=== PATIENT | female | born 1940 | race African-American/Black ===

== ENCOUNTER 2017-07-31 12:44 | Inpatient (IN) | payer MEDICARE ==
[~2017-07-31] VITALS: Ht 170.2 cm; Wt 77.1 kg
--- NOTE | 2017-07-31 12:50 | Emergency Room Report ---
History of Present Illness General Chief Complaint: Altered Level of Consciousness Source: EMS Present Illness HPI Patient is brought in from nursing facility with complaints of altered mental status Patient herself is not able to provide appropriate history There is a CT report from July 25 regarding an occipital CVA that is similar to previous Were contacting the assisted to obtain specifically the changes that were visualized Paramedics reported that the change in mentation was ongoing for approximately 30 minutes Unknown time of onset And the patient had become more oriented Allergies: Uncoded Allergies: PENICILLIN (Allergy, Unknown, 07/31/17) Patient History Limited by: medical condition Past Medical History: see triage record Pertinent Family History: none Reviewed Nursing Documentation: PMH: Agreed, PSxH: Agreed Nursing Documentation-PMH Past Medical History: No History, Except For Hx Cardiac Problems: Yes - [place], CHF, cardiomyopathy, Afib Hx Hypertension: Yes - Hyperlipidemia Hx Diabetes: Yes Hx Neurological Problems: Yes - Hemiplegia Review of Systems All Other Systems: limited - Other than the ones mentioned in the history of present illness all others are reviewed however they do stay limited due to the patient's mental status Physical Exam Vital Signs Date Time Temp Pulse Resp B/P (MAP) Pulse Ox O2 Delivery O2 Flow Rate FiO2 07/31/17 12:39 98.1 90 16 141/75 99 Room Air Sp02 EP Interpretation: reviewed, normal General Appearance: no apparent distress Head: normocephalic, atraumatic Eyes: bilateral eye PERRL ENT: other - Drooping of the right angle of the mouth Neck: supple Respiratory: lungs clear Cardiovascular #1: regular rate, rhythm Gastrointestinal: normal bowel sounds, non tender, soft Musculoskeletal: other - No obvious focal deficit, patient however does not follow commands Neurologic: responsive - To physical stimuli however not able to have appropriate conversation does not follow commands, Skin: normal color, no rash Lymphatic: no adenopathy Medical Decision Making Diagnostic Impression: Primary Impression: Altered level of consciousness Additional Impression: UTI (urinary tract infection) ER Course Patient is a fairly complex patient with multiple differential to consideration including but not limited to cardiac cardiopulmonary and vascular emergencies Patient's CT head does not show any acute pathology however further MRI is recommended Urine sample does show infectious pathology patient initiated on IV antibiotics And requires further inpatient care Labs Test 07/31/17 13:46 07/31/17 13:48 Urine Color Yellow Urine Appearance Turbid Urine pH 6 (4.5-8.0) Urine Specific [place] 1.010 (1.005-1.035) Urine Protein 2+ (NEGATIVE) Urine Glucose (UA) Negative (NEGATIVE) Urine Ketones Negative (NEGATIVE) Urine Occult Blood 4+ (NEGATIVE) Urine Nitrite Positive (NEGATIVE) Urine Bilirubin Negative (NEGATIVE) Urine Urobilinogen Normal MG/DL (0.0-1.0) Urine Leukocyte Esterase 3+ (NEGATIVE) White Blood Count 6.5 K/UL (4.8-10.8) Red Blood Count 4.00 M/UL (4.20-5.40) Hemoglobin 11.8 G/DL (12.0-16.0) Hematocrit 37.2 % (37.0-47.0) Mean Corpuscular Volume 93 FL (80-99) Mean Corpuscular Hemoglobin 29.4 PG (27.0-31.0) Mean Corpuscular Hemoglobin Concent 31.6 G/DL (32.0-36.0) Red Cell Distribution Width 12.3 % (11.6-14.8) Platelet Count 217 K/UL (150-450) Mean Platelet Volume 7.4 FL (6.5-10.1) Neutrophils (%) (Auto) % (45.0-75.0) Lymphocytes (%) (Auto) % (20.0-45.0) Monocytes (%) (Auto) % (1.0-10.0) Eosinophils (%) (Auto) % (0.0-3.0) Basophils (%) (Auto) % (0.0-2.0) Sodium Level 142 MMOL/L (136-145) Potassium Level 4.6 MMOL/L (3.5-5.1) Chloride Level 105 MMOL/L (98-107) Carbon Dioxide Level 31 MMOL/L (21-32) Anion Gap 6 mmol/L (5-15) Blood Urea Nitrogen 15 mg/dL (7-18) Creatinine 0.9 MG/DL (0.55-1.30) Estimat Glomerular Filtration Rate mL/min (>60) Glucose Level 176 MG/DL (74-106) Calcium Level 9.1 MG/DL (8.5-10.1) Total Bilirubin 0.4 MG/DL (0.2-1.0) Aspartate Amino Transf (AST/SGOT) 30 U/L (15-37) Alanine Aminotransferase (ALT/SGPT) 22 U/L (12-78) Alkaline Phosphatase 66 U/L (46-116) Total Creatine Kinase 52 U/L (26-308) Creatine Kinase MB < 0.5 NG/ML (0.0-3.6) Creatine Kinase MB Relative Index 0.9 Total Protein 6.5 G/DL (6.4-8.2) Albumin 2.6 G/DL (3.4-5.0) Globulin 3.9 g/dL Albumin/Globulin Ratio 0.7 (1.0-2.7) EKG Diagnostic Results Rate: normal Rhythm: NSR ST Segments: no acute changes - Sinus arrhythmia Rhythm Strip Diag. Results EP Interpretation: yes Rate: 77 Rhythm: NSR, no PVC's, no ectopy Chest X-Ray Diagnostic Results Chest X-Ray Diagnostic Results : Chest X-Ray Ordered: Yes # of Views/Limited/Complete: 1 View Indication: Chest Pain Interpretation: no consolidation, no effusion, no pneumothorax, no acute cardiopulmonary disease Impression: No acute disease Electronically Signed by: Cadence Olmedo, DO CT/MRI/US Diagnostic Results CT/MRI/US Diagnostic Results : Impression CT headImpression: Considerable low-attenuation within the left parietal hemisphere, mostly in the white matter. Suspect that this is encephalomalacia due to an infarct, particularly as it is mostly very low in attenuation. However, predominant involvement of the white matter raises concern that this could be days of genic edema secondary to tumor or inflammatory process. Recommend contrast MRI for better characterization Negative for acute intracranial bleed or mass effect Last Vital Signs Date Time Temp Pulse Resp B/P (MAP) Pulse Ox O2 Delivery O2 Flow Rate FiO2 07/31/17 12:39 98.1 90 16 141/75 99 Room Air Status: improved Disposition: XFER SHT-TRM HOSP Condition: Improved CADENCE OLMEDO D.O. Jul 31, 2017 12:50
[2017-07-31 13:04] VITALS: BP 141/75
[2017-07-31] MEDS ORDERED: COUMADIN5 MG ORAL (13:10)
[2017-07-31] MEDS ORDERED: DOCUSATE SODIU100 MG ORAL (13:10)
[2017-07-31] MEDS ORDERED: ENALAPRIL MALE2.5 MG ORAL (13:10)
[2017-07-31] MEDS ORDERED: SYMLIN600 MCG/1 SUBQ (13:10)
[2017-07-31] MEDS ORDERED: CARVEDILOL6.25 MG ORAL (13:10)
[2017-07-31] MEDS ORDERED: CATAPRES0.1 MG ORAL (13:10)
[2017-07-31] MEDS ORDERED: LACTULOSE20 GM/301 ORAL (13:10)
[2017-07-31] MEDS ORDERED: SENNA S TABLET1 EAC1 PO (13:10)
[2017-07-31] MEDS ORDERED: ASPIR 8181 MG ORAL (13:10)
[2017-07-31 14:20] LABS: HEMATOCRIT 37.2 % (37.0-47.0); HEMOGLOBIN 11.8 G/DL (12.0-16.0); MEAN CORPUSCULAR VOLUME 93 FL (80-99); PLATELET COUNT 217 K/UL (150-450); RED CELL DISTRIBUTION WIDTH 12.3 % (11.6-14.8); WHITE BLOOD COUNT 6.5 K/UL (4.8-10.8)
--- NOTE | 2017-07-31 14:29 | Diagnostic Imaging Report ---
Indications: Altered mental status Technique: Spiral acquisitions obtained through the brain. Angled axial and coronal 5 x 5 mm slices were reconstructed. Total dose length product 1421 mGycm. CTDI vol(s) 70 mGy. Dose reduction achieved using automated exposure control Comparison: None Findings: Fairly extensive low-attenuation is seen involving the left convexity, involving the parietal lobe. Although in one focal area, the low attenuation extends to the cortical surface, low-attenuation predominantly involves the white matter. Results in either mass effect nor ex vacuo dilatation. There is a lacunar infarct of indeterminate age within the left caudate head. Old lacunar infarcts are also seen in the left lentiform nucleus. No acute hemorrhage. No mass effect or midline shift is age-related enlargement of ventricles and extra-axial CSF. The calvarium is intact. The mastoids are clear. There is minimal ethmoid sinus disease on the right Impression: Considerable low-attenuation within the left parietal hemisphere, mostly in the white matter. Suspect that this is encephalomalacia due to an infarct, particularly as it is mostly very low in attenuation. However, predominant involvement of the white matter raises concern that this could be days of genic edema secondary to tumor or inflammatory process. Recommend contrast MRI for better characterization Negative for acute intracranial bleed or mass effect Findings discussed by phone with Dr. Montana in the emergency room at approximately [address] scanner at [facility] is accredited by the [employer] and the scans are performed using protocols designed to limit radiation exposure to as low as reasonably achievable to attain images of sufficient resolution adequate for diagnostic evaluation.
[2017-07-31 14:36] LABS: APPEARANCE,URINE TURBID; BILIRUBIN, URINE NEGATIVE (NEGATIVE); GLUCOSE, URINE (UA) NEGATIVE (NEGATIVE); KETONES,URINE NEGATIVE (NEGATIVE); LEUKOCYTE ESTERASE ,URINE 3+ (NEGATIVE); NITRITE,URINE POSITIVE (NEGATIVE); PH,URINE 6 (4.5-8.0); PROTEIN,URINE 2+ (NEGATIVE); UROBILINOGEN,URINE NORMAL MG/DL (0.0-1.0)
[2017-07-31 14:41] LABS: COLOR,URINE YELLOW
[2017-07-31 14:46] LABS: ALANINE AMINOTRANSFERASE 22 U/L (12-78); ALBUMIN 2.6 G/DL (3.4-5.0); ALBUMIN/GLOBULIN RATIO 0.7 (1.0-2.7); ALKALINE PHOSPHATASE 66 U/L (46-116); ANION GAP 6 mmol/L (5-15); ASPARTATE AMINO TRANSFERASE 30 U/L (15-37); BILIRUBIN,TOTAL 0.4 MG/DL (0.2-1.0); BLOOD UREA NITROGEN 15 mg/dL (7-18); CALCIUM 9.1 MG/DL (8.5-10.1); CARBON DIOXIDE 31 MMOL/L (21-32); CHLORIDE 105 MMOL/L (98-107); CKMB < 0.5 NG/ML (0.0-3.6); CREATINE KINASE 52 U/L (26-308); CREATININE 0.9 MG/DL (0.55-1.30); POTASSIUM 4.6 MMOL/L (3.5-5.1); SODIUM 142 MMOL/L (136-145)
[2017-07-31] MEDS ORDERED: Clindamycin 600mg 50 ML IVPB ONE (15:00)
[2017-07-31 15:18] LABS: INR 1.2 (0.9-1.1)
--- NOTE | 2017-07-31 15:22 | Diagnostic Imaging Report ---
Indication: SOB Technique: One view of the chest Comparison: none Findings: Suboptimal inspiration. Heart size is upper limits of normal. Surgical clips are seen in the right axilla. Aorta is tortuous. Upper mediastinum is unremarkable Impression: No acute process
[2017-07-31] MEDS ORDERED: cefTRIAXone 1 GM in NS 55 ML IVPB ONE (16:45)
--- NOTE | 2017-07-31 17:04 | History & Physical ---
History and Physical History & Physicial dict syncope UTI recent CVA HTN DM HPLD see orders LM HSIEH Jul 31, 2017 17:04
--- NOTE | 2017-07-31 17:04 | History & Physical ---
History and Physical History & Physicial dict syncope UTI recent CVA HTN DM HPLD see orders LM HSIEH Jul 31, 2017 17:04
--- NOTE | 2017-07-31 17:04 | History & Physical ---
History and Physical History & Physicial dict syncope UTI recent CVA HTN DM HPLD see orders LM HSIEH Jul 31, 2017 17:04
[2017-07-31 17:36] VITALS: BP 129/85
[2017-07-31 18:04] VITALS: BP 140/72
[2017-07-31 20:08] VITALS: BP 132/65
--- NOTE | 2017-07-31 21:45 | History and Physical Report ---
DATE OF ADMISSION: 07/31/2017 CHIEF COMPLAINT: Loss of consciousness. HISTORY OF PRESENT ILLNESS: The patient is a 77-year-old female, who apparently was living at home until about two weeks ago when she suffered a stroke with right-sided weakness and difficulty speaking. She was hospitalized at [facility] with atrial fibrillation. She improved and was discharged to a nearby skilled nursing. She was getting therapy today when she passed out. She was evaluated in the emergency department here after she was transported by paramedics. She was found to have a urinary tract infection and controlled atrial fibrillation, admission was arranged. PAST MEDICAL HISTORY: History is limited. Based on her medications, there appears to be history of atrial fibrillation, hypertension, diabetes, and recent stroke. There is also noted a history of myocardial infarction and cardiomyopathy in the past as well as hyperlipidemia. ALLERGIES: Penicillin. REVIEW OF SYSTEMS: Apparently, she is not able to ambulate. She is eating pureed diet. She has no complaints of pain. She is able to speak simple words and seems to understand. PHYSICAL EXAMINATION: VITAL SIGNS: Stable, blood pressure 141/75, saturations are normal, and pulse is 90. HEENT: The head is normocephalic. NECK: No jugular venous distention. CHEST: Clear. CARDIAC: Rhythm is irregular without murmur or gallop. ABDOMEN: Soft and nontender. Liver and spleen not enlarged. EXTREMITIES: No clubbing, cyanosis, or edema. NEUROLOGIC: Right hemiparesis is noted. The speech is dysarthric with mild aphasia. LABORATORY AND DIAGNOSTIC DATA: Laboratory studies show the white count is normal, hemoglobin is 11.8, and platelets are normal. There is a left shift. Chemistry shows blood sugar 176 and albumin 2.6, otherwise unremarkable. Lactic acid is normal. Urinalysis shows many white cells and a few red cells. Coagulation parameters are unremarkable. IMPRESSIONS: 1. Syncope. 2. Urinary tract infection. 3. Recent stroke with right hemiparesis, aphasia, and dysarthria. 4. Diabetes. 5. Hypertension. 6. Hyperlipidemia. PLAN: The patient will be treated with antibiotics. We will get an echocardiogram and cardiac monitoring. We will check troponin. Early discharge is anticipated. Gurvinder Benson M.D. DR: Sagar JOB#: [id number] CC: Gurvinder Benson M.D.; Fax#: [phone]
--- NOTE | 2017-07-31 21:45 | History and Physical Report ---
DATE OF ADMISSION: 07/31/2017 CHIEF COMPLAINT: Loss of consciousness. HISTORY OF PRESENT ILLNESS: The patient is a 77-year-old female, who apparently was living at home until about two weeks ago when she suffered a stroke with right-sided weakness and difficulty speaking. She was hospitalized at [facility] [place] with atrial fibrillation. She improved and was discharged to a nearby detention. She was getting therapy today when she passed out. She was evaluated in the emergency department here after she was transported by paramedics. She was found to have a urinary tract infection and controlled atrial fibrillation, admission was arranged. PAST MEDICAL HISTORY: History is limited. Based on her medications, there appears to be history of atrial fibrillation, hypertension, diabetes, and recent stroke. There is also noted a history of myocardial infarction and cardiomyopathy in the past as well as hyperlipidemia. ALLERGIES: Penicillin. REVIEW OF SYSTEMS: Apparently, she is not able to ambulate. She is eating pureed diet. She has no complaints of pain. She is able to speak simple words and seems to understand. PHYSICAL EXAMINATION: VITAL SIGNS: Stable, blood pressure 141/75, saturations are normal, and pulse is 90. HEENT: The head is normocephalic. NECK: No jugular venous distention. CHEST: Clear. CARDIAC: Rhythm is irregular without murmur or gallop. ABDOMEN: Soft and nontender. Liver and spleen not enlarged. EXTREMITIES: No clubbing, cyanosis, or edema. NEUROLOGIC: Right hemiparesis is noted. The speech is dysarthric with mild aphasia. LABORATORY AND DIAGNOSTIC DATA: Laboratory studies show the white count is normal, hemoglobin is 11.8, and platelets are normal. There is a left shift. Chemistry shows blood sugar 176 and albumin 2.6, otherwise unremarkable. Lactic acid is normal. Urinalysis shows many white cells and a few red cells. Coagulation parameters are unremarkable. IMPRESSIONS: 1. Syncope. 2. Urinary tract infection. 3. Recent stroke with right hemiparesis, aphasia, and dysarthria. 4. Diabetes. 5. Hypertension. 6. Hyperlipidemia. PLAN: The patient will be treated with antibiotics. We will get an echocardiogram and cardiac monitoring. We will check troponin. Early discharge is anticipated. Gurvinder Benson M.D. DR: Sagar JOB#: [id number] CC: Gurvinder Benson M.D.; Fax#: [phone]
[2017-07-31] MEDS: Enalapril 2.5mg tab ORAL SCH (22:38)
[2017-07-31] MEDS: Carvedilol 6.25mg Tab ORAL SCH (22:39)
[2017-07-31] MEDS: Warfarin Sodium 5mg ORAL SCH (22:40)
[2017-07-31] MEDS: NovoLOG Insulin Flexpen SUBQ SCH (22:53)
[2017-07-31] MEDS ORDERED: ACETAMINOPHEN325 M1 ORAL (23:58)
[2017-08-01] VITALS (7 sets, daily range): BP systolic 109–164; BP diastolic 56–99
[2017-08-01] MEDS ORDERED: Lactulose 20gm/30ml UDC ORAL SCH
[2017-08-01] MEDS ORDERED: Lactulose 20gm/30ml UDC ORAL PRN ×2 (00:15)
[2017-08-01] MEDS: NovoLOG Insulin Flexpen SUBQ SCH ×4 (06:34→21:24)
[2017-08-01 08:02] LABS: BASOPHILS % (AUTO) 0.4 % (0.0-2.0); EOSINOPHILS % (AUTO) 1.7 % (0.0-3.0); HEMATOCRIT 33.1 % (37.0-47.0); HEMOGLOBIN 10.8 G/DL (12.0-16.0); LYMPHOCYTES % (AUTO) 21.2 % (20.0-45.0); MEAN CORPUSCULAR VOLUME 93 FL (80-99); MONOCYTES % (AUTO) 8.9 % (1.0-10.0); NEUTROPHILS % (AUTO) 67.7 % (45.0-75.0); PLATELET COUNT 180 K/UL (150-450); RED BLOOD COUNT 3.57 M/UL (4.20-5.40); RED CELL DISTRIBUTION WIDTH 12.8 % (11.6-14.8); WHITE BLOOD COUNT 6.6 K/UL (4.8-10.8)
[2017-08-01 08:09] LABS: INR 1.2 (0.9-1.1)
[2017-08-01 08:44] LABS: ALANINE AMINOTRANSFERASE 20 U/L (12-78); ALBUMIN 2.5 G/DL (3.4-5.0); ALBUMIN/GLOBULIN RATIO 0.7 (1.0-2.7); ALKALINE PHOSPHATASE 54 U/L (46-116); ANION GAP 11 mmol/L (5-15); ASPARTATE AMINO TRANSFERASE 34 U/L (15-37); BILIRUBIN,TOTAL 0.5 MG/DL (0.2-1.0); BLOOD UREA NITROGEN 13 mg/dL (7-18); CALCIUM 8.8 MG/DL (8.5-10.1); CARBON DIOXIDE 26 MMOL/L (21-32); CHLORIDE 104 MMOL/L (98-107); CHOLESTEROL 177 MG/DL (< 200); CREATININE 0.8 MG/DL (0.55-1.30); HDL CHOLESTEROL 44 MG/DL (40-60); POTASSIUM 4.9 MMOL/L (3.5-5.1); SODIUM 141 MMOL/L (136-145); TRIGLYCERIDES 61 MG/DL (0-200)
--- NOTE | 2017-08-01 09:13 | Wound Care Consultation ---
Wound Assessment Wound Assessment #1: Wound Number: 1 Wound Present on Admission: Yes New Wound: No Status Change of Wound: No Wound Location Body Site Modif: mid Wound Location Body Site: sacral Wound Type: pressure ulcer Denisha Test: Does not Denisha Pressure Ulcer Stage: III Wound Thickness: Full Thickness Wound Length: 2.5 Wound Width: 2.5 Wound Depth: 0.3 Percent of Wound [place]/Red: 100 Wound Drainage Description: Serosanguineous Wound Drainage Amount: Scant Wound Drainage Odor: None/Absent Tissue Surrounding Wound: Macerated Wound General Appearance: Reddened, Draining Wound Assessment #2: Wound Number: 2 Wound Present on Admission: Yes New Wound: No Status Change of Wound: No Wound Location Body Site Modif: right Wound Location Body Site: buttocks Wound Type: pressure ulcer Denisha Test: Does not Denisha Pressure Ulcer Stage: II Wound Thickness: Partial Thickness Wound Length: 0.5 Wound Width: 0.5 Wound Depth: 0.1 Percent of Wound [place]/Red: 100 Wound Drainage Description: Serosanguineous Wound Drainage Amount: Scant Wound Drainage Odor: None/Absent Tissue Surrounding Wound: Macerated Wound General Appearance: Reddened, Draining Wound Comment #1 Mid sacral stage III pressure ulcer #2 Right buttock stage II pressure ulcer Recommendation -Mid sacral stage III pressure ulcer and Right buttock stage II pressure ulcer Cleanse with saline, pat dry, apply Triad cream, to wound bed and to [place] wound area, cover with Biatain silicone daily and PRN soiled/dislodged -Low air loss P 200 mattress -Offload both heels -Heel protector on both heels -Optimize nutrition -Keep clean and dry -Turn and reposition -Assess and f/u accordingly for any changes ARBEN ASHTON RN Aug 01, 2017 09:13
--- NOTE | 2017-08-01 09:13 | Wound Care Consultation ---
Wound Assessment Wound Assessment #1: Wound Number: 1 Wound Present on Admission: Yes New Wound: No Status Change of Wound: No Wound Location Body Site Modif: mid Wound Location Body Site: sacral Wound Type: pressure ulcer Denisha Test: Does not Denisha Pressure Ulcer Stage: III Wound Thickness: Full Thickness Wound Length: 2.5 Wound Width: 2.5 Wound Depth: 0.3 Percent of Wound [place]/Red: 100 Wound Drainage Description: Serosanguineous Wound Drainage Amount: Scant Wound Drainage Odor: None/Absent Tissue Surrounding Wound: Macerated Wound General Appearance: Reddened, Draining Wound Assessment #2: Wound Number: 2 Wound Present on Admission: Yes New Wound: No Status Change of Wound: No Wound Location Body Site Modif: right Wound Location Body Site: buttocks Wound Type: pressure ulcer Denisha Test: Does not Denisha Pressure Ulcer Stage: II Wound Thickness: Partial Thickness Wound Length: 0.5 Wound Width: 0.5 Wound Depth: 0.1 Percent of Wound [place]/Red: 100 Wound Drainage Description: Serosanguineous Wound Drainage Amount: Scant Wound Drainage Odor: None/Absent Tissue Surrounding Wound: Macerated Wound General Appearance: Reddened, Draining Wound Comment #1 Mid sacral stage III pressure ulcer #2 Right buttock stage II pressure ulcer Recommendation -Mid sacral stage III pressure ulcer and Right buttock stage II pressure ulcer Cleanse with saline, pat dry, apply Triad cream, to wound bed and to [place] wound area, cover with Biatain silicone daily and PRN soiled/dislodged -Low air loss P 200 mattress -Offload both heels -Heel protector on both heels -Optimize nutrition -Keep clean and dry -Turn and reposition -Assess and f/u accordingly for any changes ARBEN ASHTON RN Aug 01, 2017 09:13
--- NOTE | 2017-08-01 09:13 | Wound Care Consultation ---
Wound Assessment Wound Assessment #1: Wound Number: 1 Wound Present on Admission: Yes New Wound: No Status Change of Wound: No Wound Location Body Site Modif: mid Wound Location Body Site: sacral Wound Type: pressure ulcer Denisha Test: Does not Denisha Pressure Ulcer Stage: III Wound Thickness: Full Thickness Wound Length: 2.5 Wound Width: 2.5 Wound Depth: 0.3 Percent of Wound [place]/Red: 100 Wound Drainage Description: Serosanguineous Wound Drainage Amount: Scant Wound Drainage Odor: None/Absent Tissue Surrounding Wound: Macerated Wound General Appearance: Reddened, Draining Wound Assessment #2: Wound Number: 2 Wound Present on Admission: Yes New Wound: No Status Change of Wound: No Wound Location Body Site Modif: right Wound Location Body Site: buttocks Wound Type: pressure ulcer Denisha Test: Does not Denisha Pressure Ulcer Stage: II Wound Thickness: Partial Thickness Wound Length: 0.5 Wound Width: 0.5 Wound Depth: 0.1 Percent of Wound [place]/Red: 100 Wound Drainage Description: Serosanguineous Wound Drainage Amount: Scant Wound Drainage Odor: None/Absent Tissue Surrounding Wound: Macerated Wound General Appearance: Reddened, Draining Wound Comment #1 Mid sacral stage III pressure ulcer #2 Right buttock stage II pressure ulcer Recommendation -Mid sacral stage III pressure ulcer and Right buttock stage II pressure ulcer Cleanse with saline, pat dry, apply Triad cream, to wound bed and to [place] wound area, cover with Biatain silicone daily and PRN soiled/dislodged -Low air loss P 200 mattress -Offload both heels -Heel protector on both heels -Optimize nutrition -Keep clean and dry -Turn and reposition -Assess and f/u accordingly for any changes ARBEN ASHTON RN Aug 01, 2017 09:13
[2017-08-01] MEDS: Aspirin EC 81mg tab ORAL SCH (10:06)
[2017-08-01] MEDS: Enalapril 2.5mg tab ORAL SCH ×2 (10:06→21:18)
[2017-08-01] MEDS: Carvedilol 6.25mg Tab ORAL SCH ×2 (10:06→21:18)
[2017-08-01] MEDS: Docusate 100mg cap ORAL SCH ×2 (10:06→18:46)
--- NOTE | 2017-08-01 14:13 | General Progress Note ---
Assessment/Plan Status: stable Assessment/Plan 1. Syncope. 2. Urinary tract infection. 3. Recent stroke with right hemiparesis, aphasia, and dysarthria. 4. Diabetes. 5. Hypertension. 6. Hyperlipidemia. 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 Subjective ROS Limited/Unobtainable: Yes Constitutional: Denies: fever Allergies: Coded Allergies: PENICILLINS (Unverified Allergy, Unknown, 08/01/17) Uncoded Allergies: PENICILLIN (Allergy, Unknown, 07/31/17) Objective Last 24 Hour Vital Signs Date Time Temp Pulse Resp B/P (MAP) Pulse Ox O2 Delivery O2 Flow Rate FiO2 08/01/17 12:45 96.6 69 19 109/56 98 Room Air 08/01/17 10:06 152/76 08/01/17 10:06 98 152/76 08/01/17 08:50 97.7 98 18 152/76 98 Room Air 08/01/17 04:25 97.3 102 16 130/71 98 Room Air 08/01/17 04:00 75 08/01/17 00:13 97.7 77 16 142/69 100 Room Air 08/01/17 00:00 75 07/31/17 22:39 57 132/65 07/31/17 22:38 132/65 07/31/17 22:00 132/65 07/31/17 20:08 97.2 57 12 132/65 97 07/31/17 20:00 62 07/31/17 18:04 96.4 59 18 140/72 96 Room Air 07/31/17 17:44 98.1 81 19 129/85 100 Room Air 07/31/17 17:36 98.1 81 19 129/85 100 Room Air Intake and Output 08/01/17 08/02/17 19:00 07:00 Intake Total 270 ml Output Total 250 ml Balance 20 ml Intake Oral 270 ml Output Urine Total 250 ml # Bowel Movements 1 Laboratory Tests 08/01/17 05:15: White Blood Count 6.6, Red Blood Count 3.57L, Hemoglobin 10.8L, Hematocrit 33.1L , Mean Corpuscular Volume 93, Mean Corpuscular Hemoglobin 30.2, Mean Corpuscular Hemoglobin Concent 32.5, Red Cell Distribution Width 12.8, Platelet Count 180, Mean Platelet Volume 7.1, Neutrophils (%) (Auto) 67.7, Lymphocytes (% ) (Auto) 21.2, Monocytes (%) (Auto) 8.9, Eosinophils (%) (Auto) 1.7, Basophils ( %) (Auto) 0.4, Prothrombin Time 12.9H, Prothromb Time International Ratio 1.2H, Sodium Level 141, Potassium Level 4.9, Chloride Level 104, Carbon Dioxide Level 26, Anion Gap 11, Blood Urea Nitrogen 13, Creatinine 0.8, Estimat Glomerular Filtration Rate , Glucose Level 113H, Hemoglobin A1c 5.6, Calcium Level 8.8, Total Bilirubin 0.5, Aspartate Amino Transf (AST/SGOT) 34, Alanine Aminotransferase (ALT/SGPT) 20, Alkaline Phosphatase 54, Total Protein 6.2L, Albumin 2.5L, Globulin 3.7, Albumin/Globulin Ratio 0.7L, Triglycerides Level 61 , Cholesterol Level 177, LDL Cholesterol 113H, HDL Cholesterol 44, Cholesterol/ HDL Ratio 4.0, Thyroid Stimulating Hormone (TSH) 0.756 Height (Feet): 5 Height (Inches): 7.00 Weight (Pounds): 170 General Appearance: no apparent distress, confused Neck: normal alignment Cardiovascular: normal rate Respiratory/Chest: lungs clear Abdomen: non tender LM HSIEH Aug 01, 2017 14:13
--- NOTE | 2017-08-01 14:56 | Infectious Diseases Prog Note ---
Assessment/Plan Assessment/Plan Full consult dictated: A) 1) uti 2) possible gram + bacteremia 3) possible sepsis, ams 4) pmh noted P) 1) vancomycin, cefepime 2) check bc, uc, labs 3) d/w Dr. Benson 4) thank you Subjective Allergies: Coded Allergies: PENICILLINS (Unverified Allergy, Unknown, 08/01/17) Uncoded Allergies: PENICILLIN (Allergy, Unknown, 07/31/17) Objective Vital Signs Last 24 Hour Vital Signs Date Time Temp Pulse Resp B/P (MAP) Pulse Ox O2 Delivery O2 Flow Rate FiO2 08/01/17 12:45 97.9 55 19 147/78 100 Room Air 08/01/17 10:06 152/76 08/01/17 10:06 98 152/76 08/01/17 08:50 97.7 98 18 152/76 98 Room Air 08/01/17 04:25 97.3 102 16 130/71 98 Room Air 08/01/17 04:00 75 08/01/17 00:13 97.7 77 16 142/69 100 Room Air 08/01/17 00:00 75 07/31/17 22:39 57 132/65 07/31/17 22:38 132/65 07/31/17 22:00 132/65 07/31/17 20:08 97.2 57 12 132/65 97 07/31/17 20:00 62 07/31/17 18:04 96.4 59 18 140/72 96 Room Air 07/31/17 17:44 98.1 81 19 129/85 100 Room Air 07/31/17 17:36 98.1 81 19 129/85 100 Room Air Height (Feet): 5 Height (Inches): 7.00 Weight (Pounds): 170 Microbiology Date/Time Source Procedure Growth Status 07/31/17 13:25 Blood Blood Culture - Preliminary Resulted 07/31/17 13:46 Urine,Clean Catch Urine Culture - Preliminary Gram Negative Bacillus 1 Resulted Laboratory Tests Test 08/01/17 05:15 White Blood Count 6.6 K/UL (4.8-10.8) Red Blood Count 3.57 M/UL (4.20-5.40) L Hemoglobin 10.8 G/DL (12.0-16.0) L Hematocrit 33.1 % (37.0-47.0) L Mean Corpuscular Volume 93 FL (80-99) Mean Corpuscular Hemoglobin 30.2 PG (27.0-31.0) Mean Corpuscular Hemoglobin Concent 32.5 G/DL (32.0-36.0) Red Cell Distribution Width 12.8 % (11.6-14.8) Platelet Count 180 K/UL (150-450) Mean Platelet Volume 7.1 FL (6.5-10.1) Neutrophils (%) (Auto) 67.7 % (45.0-75.0) Lymphocytes (%) (Auto) 21.2 % (20.0-45.0) Monocytes (%) (Auto) 8.9 % (1.0-10.0) Eosinophils (%) (Auto) 1.7 % (0.0-3.0) Basophils (%) (Auto) 0.4 % (0.0-2.0) Prothrombin Time 12.9 SEC (9.30-11.50) H Prothromb Time International Ratio 1.2 (0.9-1.1) H Sodium Level 141 MMOL/L (136-145) Potassium Level 4.9 MMOL/L (3.5-5.1) Chloride Level 104 MMOL/L (98-107) Carbon Dioxide Level 26 MMOL/L (21-32) Anion Gap 11 mmol/L (5-15) Blood Urea Nitrogen 13 mg/dL (7-18) Creatinine 0.8 MG/DL (0.55-1.30) Estimat Glomerular Filtration Rate mL/min (>60) Glucose Level 113 MG/DL (74-106) H Hemoglobin A1c 5.6 % (4.3-6.0) Calcium Level 8.8 MG/DL (8.5-10.1) Total Bilirubin 0.5 MG/DL (0.2-1.0) Aspartate Amino Transf (AST/SGOT) 34 U/L (15-37) Alanine Aminotransferase (ALT/SGPT) 20 U/L (12-78) Alkaline Phosphatase 54 U/L (46-116) Total Protein 6.2 G/DL (6.4-8.2) L Albumin 2.5 G/DL (3.4-5.0) L Globulin 3.7 g/dL Albumin/Globulin Ratio 0.7 (1.0-2.7) L Triglycerides Level 61 MG/DL (0-200) Cholesterol Level 177 MG/DL (< 200) LDL Cholesterol 113 mg/dL (<100) H HDL Cholesterol 44 MG/DL (40-60) Cholesterol/HDL Ratio 4.0 (3.3-4.4) Thyroid Stimulating Hormone (TSH) 0.756 uiU/mL (0.360-3.740) Current Medications Medications (Trade) Dose Ordered Sig/Ricardo Route PRN Reason Start Time Stop Time Status Last Admin Dose Admin Acetaminophen (Tylenol) 650 mg Q4H PRN ORAL Fever/Headache/Mild Pain 07/31/17 19:30 08/30/17 19:29 Aspirin (Ecotrin) 81 mg DAILY ORAL 08/01/17 09:00 08/31/17 08:59 08/01/17 10:06 Carvedilol (Coreg) 6.25 mg EVERY 12 HOURS ORAL 07/31/17 21:00 08/30/17 20:59 08/01/17 10:06 Clonidine HCl (Catapres) 0.1 mg Q8HR PRN ORAL For High Blood Pressure 08/01/17 00:00 08/31/17 00:00 Dextrose (Dextrose 50%) STAT PRN IV Hypoglycemia 07/31/17 19:30 08/30/17 19:29 Docusate Sodium (Colace) 100 mg TWICE A DAY ORAL 08/01/17 09:00 08/31/17 08:59 08/01/17 10:06 Enalapril Maleate (Vasotec) 2.5 mg EVERY 12 HOURS ORAL 07/31/17 21:00 08/30/17 20:59 08/01/17 10:06 Insulin Aspart (NovoLOG) BEFORE MEALS AND HS SUBQ 07/31/17 21:00 08/30/17 20:59 08/01/17 12:25 Lactulose (Cephulac) 20 gm Q6HR PRN ORAL Constipation 08/01/17 00:15 08/31/17 00:14 Warfarin Sodium (Coumadin per pharmacy) 1 ea DAILY PRN MISC Per rx protocol 07/31/17 19:30 08/30/17 19:29 Warfarin Sodium (Coumadin) 5 mg COUMADIN ORAL 07/31/17 21:00 08/05/17 20:59 07/31/17 22:40 MIKKI COLON Aug 01, 2017 14:56
[2017-08-01] MEDS ORDERED: Vancomycin 1250mg/D5W 250ml 250 ML IVPB SCH (17:30)
[2017-08-01] MEDS: Warfarin Sodium 5mg ORAL SCH (17:33)
[2017-08-02] VITALS: BP 149/74
[2017-08-02 04:00] VITALS: BP 148/64
[2017-08-02] MEDS: NovoLOG Insulin Flexpen SUBQ SCH ×4 (07:02→21:29)
[2017-08-02 08:00] VITALS: BP 159/78
[2017-08-02 09:00] LABS: BASOPHILS % (AUTO) 3.1 % (0.0-2.0); EOSINOPHILS % (AUTO) 1.2 % (0.0-3.0); HEMATOCRIT 34.3 % (37.0-47.0); HEMOGLOBIN 11.4 G/DL (12.0-16.0); MEAN CORPUSCULAR VOLUME 93 FL (80-99); MONOCYTES % (AUTO) 12.6 % (1.0-10.0); PLATELET COUNT 193 K/UL (150-450); RED BLOOD COUNT 3.68 M/UL (4.20-5.40); RED CELL DISTRIBUTION WIDTH 12.6 % (11.6-14.8); WHITE BLOOD COUNT 5.8 K/UL (4.8-10.8)
[2017-08-02 09:20] LABS: INR 1.4 (0.9-1.1)
[2017-08-02] MEDS: Aspirin EC 81mg tab ORAL SCH (09:38)
[2017-08-02] MEDS: Enalapril 2.5mg tab ORAL SCH ×2 (09:38→21:31)
[2017-08-02] MEDS: Carvedilol 6.25mg Tab ORAL SCH ×2 (09:38→21:31)
[2017-08-02] MEDS: Docusate 100mg cap ORAL SCH ×2 (09:39→17:03)
[2017-08-02 09:49] LABS: ALANINE AMINOTRANSFERASE 18 U/L (12-78); ALBUMIN 2.6 G/DL (3.4-5.0); ALBUMIN/GLOBULIN RATIO 0.6 (1.0-2.7); ALKALINE PHOSPHATASE 54 U/L (46-116); ANION GAP 9 mmol/L (5-15); ASPARTATE AMINO TRANSFERASE 26 U/L (15-37); BILIRUBIN,TOTAL 0.6 MG/DL (0.2-1.0); BLOOD UREA NITROGEN 13 mg/dL (7-18); CALCIUM 9.1 MG/DL (8.5-10.1); CARBON DIOXIDE 27 MMOL/L (21-32); CHLORIDE 104 MMOL/L (98-107); CHOLESTEROL 181 MG/DL (< 200); CREATININE 0.9 MG/DL (0.55-1.30); HDL CHOLESTEROL 46 MG/DL (40-60); POTASSIUM 4.4 MMOL/L (3.5-5.1); SODIUM 140 MMOL/L (136-145); TRIGLYCERIDES 53 MG/DL (0-200)
[2017-08-02] MEDS: Vancomycin 750mg/NS 250ml 250 ML IVPB SCH ×2 (10:00→21:31)
[2017-08-02 12:00] VITALS: BP 148/58
--- NOTE | 2017-08-02 13:42 | Pulmonology Progress Note ---
Assessment/Plan Assessment/Plan 1. Syncope. 2. Urinary tract infection staph epi bacteremia 3. Recent stroke with right hemiparesis, aphasia, and dysarthria. 4. Diabetes. 5. Hypertension. 6. Hyperlipidemia. PLAN: abx o2 nebs and suction modified diet fu labs wound care pt cxr friday Subjective ROS Limited/Unobtainable: Yes Allergies: Coded Allergies: PENICILLINS (Unverified Allergy, Unknown, 08/01/17) Uncoded Allergies: PENICILLIN (Allergy, Unknown, 07/31/17) Subjective difficult to understand no distress on o2 tolerating po with assitance, modifed no cp or fever noted does not get out of bed Objective Last 24 Hour Vital Signs Date Time Temp Pulse Resp B/P (MAP) Pulse Ox O2 Delivery O2 Flow Rate FiO2 08/02/17 12:00 98.2 58 18 148/58 100 Room Air 08/02/17 09:38 159/78 08/02/17 09:38 57 159/78 08/02/17 08:00 97.9 57 18 159/78 98 Room Air 08/02/17 04:00 97.7 61 20 148/64 100 Room Air 08/02/17 04:00 61 08/02/17 00:00 66 08/02/17 00:00 97.7 96 18 149/74 98 Room Air 08/01/17 21:18 164/99 08/01/17 21:18 62 164/99 08/01/17 20:31 97.5 18 164/99 94 Room Air 97.0 08/01/17 20:03 98.1 62 18 153/62 94 Room Air 96.0 08/01/17 20:00 63 08/01/17 16:00 85 08/01/17 15:53 97.9 60 18 151/69 100 Room Air Intake and Output 08/02/17 08/03/17 19:00 07:00 Intake Total 360 ml Balance 360 ml Intake Oral 360 ml General Appearance: WD/WN HEENT: atraumatic, anicteric Respiratory/Chest: rhonchi Cardiovascular: normal rate, regularly irregular Abdomen: no organomegaly Extremities: no clubbing Skin: no lesions Microbiology Date/Time Source Procedure Growth Status 07/31/17 13:48 Blood Blood Culture - Preliminary Gram Positive Cocci Resulted 07/31/17 13:25 Blood Blood Culture - Preliminary Staphylococcus Species Resulted 07/31/17 18:00 Nasal Nares MRSA Culture - Final NO METHICILLIN RESISTANT STAPH AUREUS... Complete 07/31/17 13:46 Urine,Clean Catch Urine Culture - Final Klebsiella Pneumoniae Complete 07/31/17 18:00 Rectum VRE Culture - Final NO VANCOMYCIN RESISTANT ENTEROCOCCUS ... Complete Laboratory Tests 08/02/17 07:35: White Blood Count 5.8, Red Blood Count 3.68L, Hemoglobin 11.4L, Hematocrit 34.3L , Mean Corpuscular Volume 93, Mean Corpuscular Hemoglobin 30.9, Mean Corpuscular Hemoglobin Concent 33.3, Red Cell Distribution Width 12.6, Platelet Count 193, Mean Platelet Volume 8.0, Neutrophils (%) (Auto) 67.0, Lymphocytes (% ) (Auto) 16.0L, Monocytes (%) (Auto) 12.6H, Eosinophils (%) (Auto) 1.2, Basophils (%) (Auto) 3.1H, Prothrombin Time 14.7H, Prothromb Time International Ratio 1.4H, Sodium Level 140, Potassium Level 4.4, Chloride Level 104, Carbon Dioxide Level 27, Anion Gap 9, Blood Urea Nitrogen 13, Creatinine 0.9, Estimat Glomerular Filtration Rate , Glucose Level 120H, Calcium Level 9.1, Total Bilirubin 0.6, Aspartate Amino Transf (AST/SGOT) 26, Alanine Aminotransferase ( ALT/SGPT) 18, Alkaline Phosphatase 54, Total Protein 6.7, Albumin 2.6L, Globulin 4.1, Albumin/Globulin Ratio 0.6L, Triglycerides Level 53, Cholesterol Level 181, LDL Cholesterol 124H, HDL Cholesterol 46, Cholesterol/HDL Ratio 3.9, Thyroid Stimulating Hormone (TSH) 0.730 Current Medications Medications (Trade) Dose Ordered Sig/Ricardo Route PRN Reason Start Time Stop Time Status Last Admin Dose Admin Acetaminophen (Tylenol) 650 mg Q4H PRN ORAL Fever/Headache/Mild Pain 07/31/17 19:30 08/30/17 19:29 Aspirin (Ecotrin) 81 mg DAILY ORAL 08/01/17 09:00 08/31/17 08:59 08/02/17 09:38 Carvedilol (Coreg) 6.25 mg EVERY 12 HOURS ORAL 07/31/17 21:00 08/30/17 20:59 08/02/17 09:38 Cefepime HCl 1 gm/ Dextrose 50 ml @ 100 mls/hr Q24H IVPB 08/01/17 17:00 08/08/17 16:59 08/01/17 17:33 Clonidine HCl (Catapres) 0.1 mg Q8HR PRN ORAL For High Blood Pressure 08/01/17 00:00 08/31/17 00:00 Dextrose (Dextrose 50%) STAT PRN IV Hypoglycemia 07/31/17 19:30 08/30/17 19:29 Docusate Sodium (Colace) 100 mg TWICE A DAY ORAL 08/01/17 09:00 08/31/17 08:59 08/02/17 09:39 Enalapril Maleate (Vasotec) 2.5 mg EVERY 12 HOURS ORAL 07/31/17 21:00 08/30/17 20:59 08/02/17 09:38 Insulin Aspart (NovoLOG) BEFORE MEALS AND HS SUBQ 07/31/17 21:00 08/30/17 20:59 08/02/17 12:27 Lactulose (Cephulac) 20 gm Q6HR PRN ORAL Constipation 08/01/17 00:15 08/31/17 00:14 Vancomycin HCl (Vanco rx to dose) 1 ea DAILYPRN PRN MISC Per rx protocol 08/01/17 15:00 08/31/17 14:59 Vancomycin/Sodium Chloride 250 ml @ 166.667 mls/hr Q12HR IVPB 08/02/17 10:00 08/07/17 09:59 08/02/17 10:00 Warfarin Sodium (Coumadin per pharmacy) 1 ea DAILY PRN MISC Per rx protocol 07/31/17 19:30 08/30/17 19:29 Warfarin Sodium (Coumadin) 5 mg COUMADIN ORAL 07/31/17 21:00 08/05/17 20:59 08/01/17 17:33 EDI VILLAGOMEZ DO Aug 02, 2017 13:42
[2017-08-02 16:55] VITALS: BP 156/77
[2017-08-02] MEDS: Warfarin Sodium 5mg ORAL SCH (17:03)
[2017-08-02 20:00] VITALS: BP 166/84
[2017-08-03] VITALS (7 sets, daily range): BP systolic 128–164; BP diastolic 50–87
[2017-08-03] MEDS: NovoLOG Insulin Flexpen SUBQ SCH ×4 (06:34→20:53)
[2017-08-03] MEDS: Aspirin EC 81mg tab ORAL SCH (09:30)
[2017-08-03] MEDS: Carvedilol 6.25mg Tab ORAL SCH ×2 (09:30→20:50)
[2017-08-03] MEDS: Vancomycin 750mg/NS 250ml 250 ML IVPB SCH ×2 (09:30→20:51)
[2017-08-03] MEDS: Docusate 100mg cap ORAL SCH ×2 (09:30→17:31)
[2017-08-03] MEDS: Enalapril 2.5mg tab ORAL SCH ×2 (09:31→20:50)
--- NOTE | 2017-08-03 10:34 | Infectious Diseases Prog Note ---
Assessment/Plan Assessment/Plan A) 1) klebsiella uti, possible online activist bacteremia (3/4 bottles +), sepsis, ams, sacral/coccyx wound clean 2) martinez, anemia, dm, htn, hld, cva, hemiplegia, mi, cad, af, cm 3) allergies - pcn 4) sh - negative, fh-nc, mar noted, notes and records noted 5) d/w RN P) 1) rocephin, vancomycin - day # 3 abx 2) recheck bc, labs, echo (? sbe) 3) wound care per protocol 4) orders entered and noted 5) continue tx per Dr. Benson and consultants 6) d/w patient Subjective Constitutional: Denies: fever HEENT: Denies: congestion Respiratory: Denies: shortness of breath Cardiovascular: Denies: chest pain Gastrointestinal/Abdominal: Denies: nausea, vomiting, diarrhea Genitourinary: Reports: other - + martinez Neurologic: Denies: headache Psychiatric: Denies: depression Skin: Denies: rash Hematologic: Denies: bleeding Musculoskeletal: Denies: pain Allergies: Coded Allergies: PENICILLINS (Unverified Allergy, Unknown, 08/01/17) Uncoded Allergies: PENICILLIN (Allergy, Unknown, 07/31/17) Objective Vital Signs Last 24 Hour Vital Signs Date Time Temp Pulse Resp B/P (MAP) Pulse Ox O2 Delivery O2 Flow Rate FiO2 08/03/17 09:31 164/73 08/03/17 09:30 59 164/73 08/03/17 08:58 98.1 59 18 164/73 100 08/03/17 05:35 97.7 50 20 153/72 99 Room Air 08/03/17 04:00 48 08/03/17 04:00 97.7 50 20 153/72 99 Room Air 08/03/17 00:06 98.0 64 20 136/87 100 Room Air 08/03/17 00:00 53 08/02/17 21:31 166/84 08/02/17 21:31 92 166/84 08/02/17 20:00 80 08/02/17 20:00 97.0 92 20 166/84 98 Room Air 08/02/17 16:55 98.0 76 18 156/77 100 Room Air 08/02/17 16:00 55 08/02/17 12:00 98.2 58 18 148/58 100 Room Air 08/02/17 12:00 61 Height (Feet): 5 Height (Inches): 7.00 Weight (Pounds): 170 General Appearance: no acute distress HEENT: normocephalic, atraumatic, anicteric, mucous membranes moist, EOMI, pharynx normal, supple, no JVD Respiratory/Chest: lungs clear, normal breath sounds, no accessory muscle use, respiratory distress Cardiovascular: normal rate, regular rhythm, no gallop/murmur, no JVD Abdomen: normal bowel sounds, soft, non tender, no organomegaly, non distended Genitourinary: other - + martinez Extremities: no cyanosis Skin: no rash, other - wound - noted, small and clean Neurologic/Psychiatric: training and development assistant II-XII grossly normal, alert, responsive Lymphatic: no neck adenopathy Musculoskeletal: no effusion Objective chest x-ray - negative pna (noted) Microbiology Date/Time Source Procedure Growth Status 07/31/17 13:48 Blood Blood Culture - Final Staphylococcus Epidermidis Complete 07/31/17 13:25 Blood Blood Culture - Final Staphylococcus Epidermidis Complete 07/31/17 18:00 Nasal Nares MRSA Culture - Final NO METHICILLIN RESISTANT STAPH AUREUS... Complete 07/31/17 13:46 Urine,Clean Catch Urine Culture - Final Klebsiella Pneumoniae Complete 07/31/17 18:00 Rectum VRE Culture - Final NO VANCOMYCIN RESISTANT ENTEROCOCCUS ... Complete Labs Test 07/31/17 13:46 07/31/17 13:48 08/01/17 05:15 08/02/17 07:35 Urine Color Yellow Urine Appearance Turbid Urine pH 6 (4.5-8.0) Urine Specific [place] 1.010 (1.005-1.035) Urine Protein 2+ (NEGATIVE) Urine Glucose (UA) Negative (NEGATIVE) Urine Ketones Negative (NEGATIVE) Urine Occult Blood 4+ (NEGATIVE) Urine Nitrite Positive (NEGATIVE) Urine Bilirubin Negative (NEGATIVE) Urine Urobilinogen Normal MG/DL (0.0-1.0) Urine Leukocyte Esterase 3+ (NEGATIVE) Urine RBC 5-10 /HPF (0 - 2) Urine WBC Tntc /HPF (0 - 2) Urine Squamous Epithelial Cells Few /LPF (NONE/OCC) Urine Bacteria Many /HPF (NONE) White Blood Count 6.5 K/UL (4.8-10.8) 6.6 K/UL (4.8-10.8) 5.8 K/UL (4.8-10.8) Red Blood Count 4.00 M/UL (4.20-5.40) 3.57 M/UL (4.20-5.40) 3.68 M/UL (4.20-5.40) Hemoglobin 11.8 G/DL (12.0-16.0) 10.8 G/DL (12.0-16.0) 11.4 G/DL (12.0-16.0) Hematocrit 37.2 % (37.0-47.0) 33.1 % (37.0-47.0) 34.3 % (37.0-47.0) Mean Corpuscular Volume 93 FL (80-99) 93 FL (80-99) 93 FL (80-99) Mean Corpuscular Hemoglobin 29.4 PG (27.0-31.0) 30.2 PG (27.0-31.0) 30.9 PG (27.0-31.0) Mean Corpuscular Hemoglobin Concent 31.6 G/DL (32.0-36.0) 32.5 G/DL (32.0-36.0) 33.3 G/DL (32.0-36.0) Red Cell Distribution Width 12.3 % (11.6-14.8) 12.8 % (11.6-14.8) 12.6 % (11.6-14.8) Platelet Count 217 K/UL (150-450) 180 K/UL (150-450) 193 K/UL (150-450) Mean Platelet Volume 7.4 FL (6.5-10.1) 7.1 FL (6.5-10.1) 8.0 FL (6.5-10.1) Neutrophils (%) (Auto) % (45.0-75.0) 67.7 % (45.0-75.0) 67.0 % (45.0-75.0) Lymphocytes (%) (Auto) % (20.0-45.0) 21.2 % (20.0-45.0) 16.0 % (20.0-45.0) Monocytes (%) (Auto) % (1.0-10.0) 8.9 % (1.0-10.0) 12.6 % (1.0-10.0) Eosinophils (%) (Auto) % (0.0-3.0) 1.7 % (0.0-3.0) 1.2 % (0.0-3.0) Basophils (%) (Auto) % (0.0-2.0) 0.4 % (0.0-2.0) 3.1 % (0.0-2.0) Differential Total Cells Counted 100 Neutrophils % (Manual) 84 % (45-75) Lymphocytes % (Manual) 10 % (20-45) Monocytes % (Manual) 5 % (1-10) Eosinophils % (Manual) 1 % (0-3) Basophils % (Manual) 0 % (0-2) Band Neutrophils 0 % (0-8) Platelet Estimate Adequate Platelet Morphology Normal Red Blood Cell Morphology Normal Prothrombin Time 12.6 SEC (9.30-11.50) 12.9 SEC (9.30-11.50) 14.7 SEC (9.30-11.50) Prothromb Time International Ratio 1.2 (0.9-1.1) 1.2 (0.9-1.1) 1.4 (0.9-1.1) Activated Partial Thromboplast Time 26 SEC (23-33) Sodium Level 142 MMOL/L (136-145) 141 MMOL/L (136-145) 140 MMOL/L (136-145) Potassium Level 4.6 MMOL/L (3.5-5.1) 4.9 MMOL/L (3.5-5.1) 4.4 MMOL/L (3.5-5.1) Chloride Level 105 MMOL/L (98-107) 104 MMOL/L (98-107) 104 MMOL/L (98-107) Carbon Dioxide Level 31 MMOL/L (21-32) 26 MMOL/L (21-32) 27 MMOL/L (21-32) Anion Gap 6 mmol/L (5-15) 11 mmol/L (5-15) 9 mmol/L (5-15) Blood Urea Nitrogen 15 mg/dL (7-18) 13 mg/dL (7-18) 13 mg/dL (7-18) Creatinine 0.9 MG/DL (0.55-1.30) 0.8 MG/DL (0.55-1.30) 0.9 MG/DL (0.55-1.30) Estimat Glomerular Filtration Rate mL/min (>60) mL/min (>60) mL/min (>60) Glucose Level 176 MG/DL (74-106) 113 MG/DL (74-106) 120 MG/DL (74-106) Lactic Acid Level 1.90 mmol/L (0.66-2.22) Calcium Level 9.1 MG/DL (8.5-10.1) 8.8 MG/DL (8.5-10.1) 9.1 MG/DL (8.5-10.1) Total Bilirubin 0.4 MG/DL (0.2-1.0) 0.5 MG/DL (0.2-1.0) 0.6 MG/DL (0.2-1.0) Aspartate Amino Transf (AST/SGOT) 30 U/L (15-37) 34 U/L (15-37) 26 U/L (15-37) Alanine Aminotransferase (ALT/SGPT) 22 U/L (12-78) 20 U/L (12-78) 18 U/L (12-78) Alkaline Phosphatase 66 U/L (46-116) 54 U/L (46-116) 54 U/L (46-116) Total Creatine Kinase 52 U/L (26-308) Creatine Kinase MB < 0.5 NG/ML (0.0-3.6) Creatine Kinase MB Relative Index 0.9 Troponin I 0.015 ng/mL (0.000-0.056) Total Protein 6.5 G/DL (6.4-8.2) 6.2 G/DL (6.4-8.2) 6.7 G/DL (6.4-8.2) Albumin 2.6 G/DL (3.4-5.0) 2.5 G/DL (3.4-5.0) 2.6 G/DL (3.4-5.0) Globulin 3.9 g/dL 3.7 g/dL 4.1 g/dL Albumin/Globulin Ratio 0.7 (1.0-2.7) 0.7 (1.0-2.7) 0.6 (1.0-2.7) Hemoglobin A1c 5.6 % (4.3-6.0) Triglycerides Level 61 MG/DL (0-200) 53 MG/DL (0-200) Cholesterol Level 177 MG/DL (< 200) 181 MG/DL (< 200) LDL Cholesterol 113 mg/dL (<100) 124 mg/dL (<100) HDL Cholesterol 44 MG/DL (40-60) 46 MG/DL (40-60) Cholesterol/HDL Ratio 4.0 (3.3-4.4) 3.9 (3.3-4.4) Thyroid Stimulating Hormone (TSH) 0.756 uiU/mL (0.360-3.740) 0.730 uiU/mL (0.360-3.740) Test 08/03/17 08:20 Laboratory Tests Test 08/03/17 08:20 Prothrombin Time Pending Prothromb Time International Ratio Pending Vancomycin Level Trough Pending Current Medications Medications (Trade) Dose Ordered Sig/Ricardo Route PRN Reason Start Time Stop Time Status Last Admin Dose Admin Acetaminophen (Tylenol) 650 mg Q4H PRN ORAL Fever/Headache/Mild Pain 07/31/17 19:30 08/30/17 19:29 Aspirin (Ecotrin) 81 mg DAILY ORAL 08/01/17 09:00 08/31/17 08:59 08/03/17 09:30 Carvedilol (Coreg) 6.25 mg EVERY 12 HOURS ORAL 07/31/17 21:00 08/30/17 20:59 08/03/17 09:30 Cefepime HCl 1 gm/ Dextrose 50 ml @ 100 mls/hr Q24H IVPB 08/01/17 17:00 08/08/17 16:59 08/02/17 17:03 Clonidine HCl (Catapres) 0.1 mg Q8HR PRN ORAL For High Blood Pressure 08/01/17 00:00 08/31/17 00:00 Dextrose (Dextrose 50%) STAT PRN IV Hypoglycemia 07/31/17 19:30 08/30/17 19:29 Docusate Sodium (Colace) 100 mg TWICE A DAY ORAL 08/01/17 09:00 08/31/17 08:59 08/03/17 09:30 Enalapril Maleate (Vasotec) 2.5 mg EVERY 12 HOURS ORAL 07/31/17 21:00 08/30/17 20:59 08/03/17 09:31 Insulin Aspart (NovoLOG) BEFORE MEALS AND HS SUBQ 07/31/17 21:00 08/30/17 20:59 08/03/17 06:34 Lactulose (Cephulac) 20 gm Q6HR PRN ORAL Constipation 08/01/17 00:15 08/31/17 00:14 Vancomycin HCl (Vanco rx to dose) 1 ea DAILYPRN PRN MISC Per rx protocol 08/01/17 15:00 08/31/17 14:59 Vancomycin/Sodium Chloride 250 ml @ 166.667 mls/hr Q12HR IVPB 08/02/17 10:00 08/07/17 09:59 08/03/17 09:30 Warfarin Sodium (Coumadin per pharmacy) 1 ea DAILY PRN MISC Per rx protocol 07/31/17 19:30 08/30/17 19:29 Warfarin Sodium (Coumadin) 5 mg COUMADIN ORAL 07/31/17 21:00 08/05/17 20:59 08/02/17 17:03 MIKKI COLON Aug 03, 2017 10:34
[2017-08-03 10:42] LABS: INR 1.5 (0.9-1.1)
[2017-08-03] MEDS: cefTRIAXone 1 GM in D5W 50 ML IVPB SCH (12:00)
--- NOTE | 2017-08-03 13:00 | Pulmonology Progress Note ---
Assessment/Plan Assessment/Plan 1. Syncope. 2. Urinary tract infection staph epi bacteremia 3. Recent stroke with right hemiparesis, aphasia, and dysarthria. 4. Diabetes. 5. Hypertension. 6. Hyperlipidemia. PLAN: better today abx per ID o2 nebs and suction modified diet fu labs wound care pt cxr friday Subjective ROS Limited/Unobtainable: Yes Allergies: Coded Allergies: PENICILLINS (Unverified Allergy, Unknown, 08/01/17) Uncoded Allergies: PENICILLIN (Allergy, Unknown, 07/31/17) Subjective more verbal today no distress on o2 tolerating po with assistance, modified no cp or fever noted does not get out of bed positive martinez cath Objective Last 24 Hour Vital Signs Date Time Temp Pulse Resp B/P (MAP) Pulse Ox O2 Delivery O2 Flow Rate FiO2 08/03/17 12:44 98.0 80 18 159/56 100 Room Air 08/03/17 10:55 132 08/03/17 09:31 164/73 08/03/17 09:30 59 164/73 08/03/17 08:58 98.1 59 18 164/73 100 08/03/17 08:00 62 08/03/17 05:35 97.7 50 20 153/72 99 Room Air 08/03/17 04:00 48 08/03/17 04:00 97.7 50 20 153/72 99 Room Air 08/03/17 00:06 98.0 64 20 136/87 100 Room Air 08/03/17 00:00 53 08/02/17 21:31 166/84 08/02/17 21:31 92 166/84 08/02/17 20:00 80 08/02/17 20:00 97.0 92 20 166/84 98 Room Air 08/02/17 16:55 98.0 76 18 156/77 100 Room Air 08/02/17 16:00 55 Intake and Output 08/03/17 08/04/17 19:00 07:00 Intake Total 240 ml Balance 240 ml Intake Oral 240 ml General Appearance: WD/WN HEENT: atraumatic, anicteric Respiratory/Chest: rhonchi Cardiovascular: normal rate, regular rhythm Abdomen: normal bowel sounds, no organomegaly Extremities: no cyanosis Skin: no lesions Microbiology Date/Time Source Procedure Growth Status 07/31/17 13:48 Blood Blood Culture - Final Staphylococcus Epidermidis Complete 07/31/17 13:25 Blood Blood Culture - Final Staphylococcus Epidermidis Complete 07/31/17 18:00 Nasal Nares MRSA Culture - Final NO METHICILLIN RESISTANT STAPH AUREUS... Complete 07/31/17 13:46 Urine,Clean Catch Urine Culture - Final Klebsiella Pneumoniae Complete 07/31/17 18:00 Rectum VRE Culture - Final NO VANCOMYCIN RESISTANT ENTEROCOCCUS ... Complete Laboratory Tests 08/03/17 08:20: Prothrombin Time 15.7H, Prothromb Time International Ratio 1.5H, Vancomycin Level Trough 15.7H Current Medications Medications (Trade) Dose Ordered Sig/Ricardo Route PRN Reason Start Time Stop Time Status Last Admin Dose Admin Acetaminophen (Tylenol) 650 mg Q4H PRN ORAL Fever/Headache/Mild Pain 07/31/17 19:30 08/30/17 19:29 Aspirin (Ecotrin) 81 mg DAILY ORAL 08/01/17 09:00 08/31/17 08:59 08/03/17 09:30 Carvedilol (Coreg) 6.25 mg EVERY 12 HOURS ORAL 07/31/17 21:00 08/30/17 20:59 08/03/17 09:30 Ceftriaxone Sodium 1 gm/ Dextrose 50 ml @ 100 mls/hr Q24H IVPB 08/03/17 12:00 08/10/17 11:59 Clonidine HCl (Catapres) 0.1 mg Q8HR PRN ORAL For High Blood Pressure 08/01/17 00:00 08/31/17 00:00 Dextrose (Dextrose 50%) STAT PRN IV Hypoglycemia 07/31/17 19:30 08/30/17 19:29 Docusate Sodium (Colace) 100 mg TWICE A DAY ORAL 08/01/17 09:00 08/31/17 08:59 08/03/17 09:30 Enalapril Maleate (Vasotec) 2.5 mg EVERY 12 HOURS ORAL 07/31/17 21:00 08/30/17 20:59 08/03/17 09:31 Insulin Aspart (NovoLOG) BEFORE MEALS AND HS SUBQ 07/31/17 21:00 08/30/17 20:59 08/03/17 11:30 Lactulose (Cephulac) 20 gm Q6HR PRN ORAL Constipation 08/01/17 00:15 08/31/17 00:14 Vancomycin HCl (Vanco rx to dose) 1 ea DAILYPRN PRN MISC Per rx protocol 08/01/17 15:00 08/31/17 14:59 Vancomycin/Sodium Chloride 250 ml @ 166.667 mls/hr Q12HR IVPB 08/02/17 10:00 08/07/17 09:59 08/03/17 09:30 Warfarin Sodium (Coumadin per pharmacy) 1 ea DAILY PRN MISC Per rx protocol 07/31/17 19:30 08/30/17 19:29 Warfarin Sodium (Coumadin) 6 mg COUMADIN ONCE ORAL 08/03/17 17:00 08/03/17 17:01 EDI VILLAGOMEZ DO Aug 03, 2017 13:00
[2017-08-03] MEDS ORDERED: Warfarin Sodium 3mg ORAL ONE (17:00)
--- NOTE | 2017-08-03 18:17 | Cardiology Report ---
APPROVED REPORT EXAM: Two-dimensional and M-mode echocardiogram with Doppler and color Doppler. INDICATION VEGITATION M-Mode DIMENSIONS IVSd1.5 (0.7-1.1cm)Left Atrium (MM)3.7 (1.6-4.0cm) LVDd4.8 (3.5-5.6cm)Aortic Root2.7 (2.0-3.7cm) PWd0.9 (0.7-1.1cm)Aortic Cusp Exc.1.6 (1.5-2.0cm) LVDs3.9 (2.5-4.0cm) PWs1.1 cm Technically difficult study due to poor acoustical windows. Normal left ventricular chamber size, systolic function and wall motion EXCEPT POSTERIOR WALL HYPOKINESIS . Left ventricular ejection fraction estimated to be 55-60 %. No evidence of left ventricular hypertrophy. Small posterior pericardial effusion. Right cardiac chamber sizes are within normal limits. Mild left atrial enlargement by 2D. Focal aortic valve sclerosis with adequate cusp excursion. Thickened mitral valve leaflets with normal excursion. Mild mitral annulus and aortic root calcification. Pulmonic valve not well visualized. Normal tricuspid valve structure. IVC is not obtainable. No evidence of vegitation are seen, consider HI if clinically indicated. A color flow and spectral Doppler study was performed and revealed: No aortic regurgitation. Trace mitral regurgitation. Mitral diastolic function not obtainable due to arrythmia. No tricuspid regurgitation.
--- NOTE | 2017-08-03 18:17 | Cardiology Report ---
APPROVED REPORT EXAM: Two-dimensional and M-mode echocardiogram with Doppler and color Doppler. INDICATION VEGITATION M-Mode DIMENSIONS IVSd1.5 (0.7-1.1cm)Left Atrium (MM)3.7 (1.6-4.0cm) LVDd4.8 (3.5-5.6cm)Aortic Root2.7 (2.0-3.7cm) PWd0.9 (0.7-1.1cm)Aortic Cusp Exc.1.6 (1.5-2.0cm) LVDs3.9 (2.5-4.0cm) PWs1.1 cm Technically difficult study due to poor acoustical windows. Normal left ventricular chamber size, systolic function and wall motion EXCEPT POSTERIOR WALL HYPOKINESIS . Left ventricular ejection fraction estimated to be 55-60 %. No evidence of left ventricular hypertrophy. Small posterior pericardial effusion. Right cardiac chamber sizes are within normal limits. Mild left atrial enlargement by 2D. Focal aortic valve sclerosis with adequate cusp excursion. Thickened mitral valve leaflets with normal excursion. Mild mitral annulus and aortic root calcification. Pulmonic valve not well visualized. Normal tricuspid valve structure. IVC is not obtainable. No evidence of vegitation are seen, consider IH if clinically indicated. A color flow and spectral Doppler study was performed and revealed: No aortic regurgitation. Trace mitral regurgitation. Mitral diastolic function not obtainable due to arrythmia. No tricuspid regurgitation.
--- NOTE | 2017-08-03 18:47 | Cardiology Report ---
APPROVED REPORT EKG Measurement Heart [id number] 146P76 [id number] Sinus rhythm with marked sinus arrhythmia with premature atrial complexes Minimal voltage criteria for LVH, may be normal variant Cannot rule out Anterior infarct, age undetermined Abnormal ECG
--- NOTE | 2017-08-03 18:47 | Cardiology Report ---
APPROVED REPORT EKG Measurement Heart [id number] SC 146P76 [id number] Sinus rhythm with marked sinus arrhythmia with premature atrial complexes Minimal voltage criteria for LVH, may be normal variant Cannot rule out Anterior infarct, age undetermined Abnormal ECG
--- NOTE | 2017-08-03 18:47 | Cardiology Report ---
APPROVED REPORT EKG Measurement Heart [id number] SD [id number] [id number] Sinus rhythm with marked sinus arrhythmia with premature atrial complexes Minimal voltage criteria for LVH, may be normal variant Cannot rule out Anterior infarct, age undetermined Abnormal ECG
[2017-08-04 00:02] VITALS: BP 143/64
[2017-08-04 04:25] VITALS: BP 151/79
[2017-08-04] MEDS: NovoLOG Insulin Flexpen SUBQ SCH ×4 (06:47→21:40)
[2017-08-04 07:57] VITALS: BP 162/92
--- NOTE | 2017-08-04 08:45 | Consultation ---
DATE OF CONSULTATION: 08/01/2017 INFECTIOUS DISEASES CONSULTATION CONSULTING PHYSICIAN: Dary Hdz M.D. ATTENDING PHYSICIAN: Gurvinder Benson M.D. REASON FOR CONSULTATION: Urinary tract infection, possible gram-positive bacteremia and sepsis. CHIEF COMPLAINT: The patient's chief complaint coming in is altered mental status. HISTORY OF PRESENT ILLNESS: This is a 77-year-old female who overall is not a very good historian. The patient presents to [facility] with altered mental status. The patient has a UTI and likely has complicated UTI with altered mental status and possible sepsis. Supporting the possible sepsis, she has possible gram-positive bacteremia also. Identification of blood cultures is pending at this time. The patient was placed on vancomycin and cefepime. She is allergic to penicillin, but has tolerated cephalosporins including Rocephin. Case was discussed with Dr. Benson. MAR was noted. Orders were noted. Notes were reviewed. PAST MEDICAL HISTORY: The patient's past medical history includes history of the following: She also comes in with syncope, altered mental status. She has a past medical history of diabetes, hypertension, and hyperlipidemia. She has a history of hemiplegia, looks like CVA, possible ACV, history of atrial fibrillation, CAD, AK, and CHF. She does have what looks a like history of CVA and now possible history of CVA with hemiplegia. ALLERGIES: Include penicillin, tolerated cephalosporins including Rocephin. MEDICATIONS: Upon reviewing the MAR, she is on the following medications. She is on aspirin. She is on Colace, lactulose, Catapres, Coreg, Vasotec, NovoLog insulin, and Coumadin. She is on Tylenol and dextrose, IV fluids. She was given Rocephin. The patient was placed on vancomycin and cefepime FAMILY HISTORY: Noncontributory. Negative for exposure to tuberculosis or cancer. SOCIAL HISTORY: Negative for smoking, alcohol, or drug abuse at this time. REVIEW OF SYSTEMS: CONSTITUTIONAL: The patient has generalized weakness and fatigue. HEAD AND NECK: No obvious head pain or neck pain. She has no central line or Khanna. PULMONARY: No congestion, shortness of breath, or hemoptysis. SKIN: No rash. NEUROLOGICAL: No seizures. Otherwise, she has generalized weakness, poor historian. No fevers. GASTROINTESTINAL: No nausea, vomiting, or diarrhea. No pressors. PHYSICAL EXAMINATION: GENERAL: Lethargic, but opens her eyes, but weak. Poor historian. VITAL SIGNS: Temperature is 97.9, pulse rate 55, respiratory rate 19, blood pressure 147/78, and saturation is 98% to 100%. HEAD AND NECK: Oral exam, no thrush. Eye exam, no icterus. Normocephalic. No facial droop. No neck stiffness. Neck is supple. HEART: Regular. No gallop or murmur. No frictional rub. ABDOMEN: Soft. Positive bowel sounds. Nontender. LUNGS: Clear bilaterally. No rhonchi or rales. SKIN: No rash. MUSCULOSKELETAL: No effusion. Legs are without cellulitis. PERIPHERAL VASCULAR: No cyanosis or gangrene. RECTAL: Deferred. GENITOURINARY: No Khanna. LINES: Line sites without phlebitis. NEUROLOGIC: Generalized weakness. Responsive. SKIN: Of note, she does have what looks like a sacral coccyx wound that looks clean. This was noted and reviewed. LABORATORY AND DIAGNOSTIC DATA: Laboratory data is as follows: White count 6.6, hemoglobin is 10.6. Creatinine is 0.8. Cultures: Urine culture grew out greater than 100,000 gram-negative rods. Blood cultures, gram-positive organisms, identification is pending, this is in clusters. Chest x-ray is negative. Urinalysis had too many to count white blood cells, many bacteria, and 3+ leukocyte esterase. ASSESSMENT AND PLAN: 1. The patient has altered mental status and possible sepsis. She has a complicated urinary tract infection with possible sepsis versus gram-positive bacteremia and sepsis. She does also have tachycardia of 102, which also could be consistent with sepsis. At this time, we will continue vancomycin and cefepime to cover gram-negative urinary tract infection and possible gram-positive bacteremia and sepsis. Continue vancomycin and cefepime. Check cultures of blood and urine and check follow up labs. Case was discussed with Dr. Benson. 2. Diabetes. 3. Hypertension. 4. Hyperlipidemia. 5. Cerebrovascular accident. 6. Hemiplegia. 7. Weakness. 8. Transient ischemic attack. 9. Myocardial infarction. 10. Coronary artery disease. 11. Congestive heart failure. 12. Atrial fibrillation. 13. Allergic to penicillin, tolerated cephalosporins. 14. MAR was noted. 15. Case was discussed with RN. 16. Social history is negative. 17. Family history is noncontributory. 18. Case was discussed with Dr. Benson. 19. Skin care protocol, I do not think the wounds are infected. Dary Hdz M.D. DR: MAGALY JOB#: [id number] CC:
--- NOTE | 2017-08-04 08:55 | General Progress Note ---
Assessment/Plan Assessment/Plan 1. Syncope. 2. Urinary tract infection. 3. Recent stroke with right hemiparesis, aphasia, and dysarthria. 4. Diabetes. 5. Hypertension. 6. Hyperlipidemia. BC + s epi cont rx dc today if lab and CXR ok check w ID on abx for dc Subjective ROS Limited/Unobtainable: Yes Allergies: Coded Allergies: PENICILLINS (Unverified Allergy, Unknown, 08/01/17) Uncoded Allergies: PENICILLIN (Allergy, Unknown, 07/31/17) Objective Last 24 Hour Vital Signs Date Time Temp Pulse Resp B/P (MAP) Pulse Ox O2 Delivery O2 Flow Rate FiO2 08/04/17 07:57 97.0 73 18 162/92 99 Room Air 08/04/17 04:25 97.0 62 20 151/79 98 Room Air 08/04/17 04:00 60 08/04/17 00:02 97.0 70 20 143/64 96 Room Air 08/04/17 00:00 61 08/03/17 20:50 128/50 08/03/17 20:50 69 128/50 08/03/17 20:00 79 08/03/17 19:58 96.0 69 20 128/50 95 Room Air 08/03/17 18:13 62 08/03/17 16:09 98.3 77 18 151/66 100 Room Air 08/03/17 15:09 159/56 08/03/17 12:44 98.0 80 18 159/56 100 Room Air 08/03/17 10:55 132 08/03/17 09:31 164/73 08/03/17 09:30 59 164/73 08/03/17 08:58 98.1 59 18 164/73 100 Intake and Output 08/04/17 08/05/17 19:00 07:00 Intake Total 150 ml Balance 150 ml Intake Oral 150 ml Laboratory Tests 08/04/17 08:10: White Blood Count [Pending], Red Blood Count [Pending], Hemoglobin [Pending], Hematocrit [Pending], Mean Corpuscular Volume [Pending], Mean Corpuscular Hemoglobin [Pending], Mean Corpuscular Hemoglobin Concent [Pending], Red Cell Distribution Width [Pending], Platelet Count [Pending], Mean Platelet Volume [ Pending], Neutrophils (%) (Auto) [Pending], Lymphocytes (%) (Auto) [Pending], Monocytes (%) (Auto) [Pending], Eosinophils (%) (Auto) [Pending], Basophils (%) (Auto) [Pending], Prothrombin Time [Pending], Prothromb Time International Ratio [Pending], Sodium Level [Pending], Potassium Level [Pending], Chloride Level [Pending], Carbon Dioxide Level [Pending], Blood Urea Nitrogen [Pending], Creatinine [Pending], Estimat Glomerular Filtration Rate [Pending], Glucose Level [Pending], Calcium Level [Pending] Height (Feet): 5 Height (Inches): 7.00 Weight (Pounds): 170 General Appearance: WD/WN, no apparent distress Cardiovascular: normal rate Respiratory/Chest: lungs clear LM HSIEH Aug 04, 2017 08:55
[2017-08-04] MEDS: Docusate 100mg cap ORAL SCH ×2 (09:00→17:09)
[2017-08-04 09:02] LABS: HEMATOCRIT 34.4 % (37.0-47.0); HEMOGLOBIN 10.9 G/DL (12.0-16.0); MEAN CORPUSCULAR VOLUME 94 FL (80-99); PLATELET COUNT 205 K/UL (150-450); RED BLOOD COUNT 3.68 M/UL (4.20-5.40); RED CELL DISTRIBUTION WIDTH 12.7 % (11.6-14.8); WHITE BLOOD COUNT 5.4 K/UL (4.8-10.8)
[2017-08-04] MEDS: Aspirin EC 81mg tab ORAL SCH (09:03)
[2017-08-04] MEDS: Carvedilol 6.25mg Tab ORAL SCH ×3 (09:03→22:21)
[2017-08-04] MEDS: Enalapril 2.5mg tab ORAL SCH ×2 (09:04→21:39)
[2017-08-04] MEDS: Vancomycin 750mg/NS 250ml 250 ML IVPB SCH ×2 (09:05→21:39)
[2017-08-04 09:12] LABS: INR 1.6 (0.9-1.1)
[2017-08-04 09:26] LABS: ANION GAP 5 mmol/L (5-15); BLOOD UREA NITROGEN 15 mg/dL (7-18); CALCIUM 8.9 MG/DL (8.5-10.1); CARBON DIOXIDE 29 MMOL/L (21-32); CHLORIDE 105 MMOL/L (98-107); POTASSIUM 4.1 MMOL/L (3.5-5.1); SODIUM 139 MMOL/L (136-145)
--- NOTE | 2017-08-04 11:12 | Diagnostic Imaging Report ---
Indication: Shortness of breath Technique: One view of the chest Comparison: 07/31/2017 Findings: Slightly better inspiration on the current exam. Slightly increased left basilar atelectatic change, despite this. Surgical clips are again demonstrated in the right axilla. Impression: Slightly increased left basilar atelectasis, over 4 days. No acute process otherwise
[2017-08-04 11:40] VITALS: BP 143/61
[2017-08-04] MEDS: cefTRIAXone 1 GM in D5W 50 ML IVPB SCH (12:27)
[2017-08-04 15:37] VITALS: BP 152/73
[2017-08-04] MEDS ORDERED: Tubing IV Secondary IV ONE (15:58)
[2017-08-04] MEDS ORDERED: Warfarin Sodium 3mg ORAL ONE (17:00)
[2017-08-04 20:00] VITALS: BP 147/89
[2017-08-05] VITALS: BP 125/75
[2017-08-05 04:00] VITALS: BP 132/55
[2017-08-05] MEDS: NovoLOG Insulin Flexpen SUBQ SCH ×4 (06:30→20:33)
[2017-08-05 07:22] LABS: INR 1.9 (0.9-1.1)
[2017-08-05 08:00] VITALS: BP 143/54
--- NOTE | 2017-08-05 09:25 | Infectious Diseases Prog Note ---
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 eBnson and consultants 6) d/w patient Subjective Constitutional: Denies: fever HEENT: Denies: dysphagia, congestion Respiratory: Denies: shortness of breath Cardiovascular: Denies: chest pain Gastrointestinal/Abdominal: Denies: constipation Genitourinary: Reports: other - + martinez Neurologic: Denies: headache Psychiatric: Denies: depression Skin: Denies: rash Hematologic: Denies: bleeding Musculoskeletal: Denies: pain Allergies: Coded Allergies: PENICILLINS (Unverified Allergy, Unknown, 08/01/17) Uncoded Allergies: PENICILLIN (Allergy, Unknown, 07/31/17) Objective Vital Signs Last 24 Hour Vital Signs Date Time Temp Pulse Resp B/P (MAP) Pulse Ox O2 Delivery O2 Flow Rate FiO2 08/05/17 08:00 97.2 48 21 143/54 100 Room Air 08/05/17 04:00 97.2 51 18 132/55 100 Room Air 08/05/17 03:42 54 08/05/17 00:00 97.7 55 18 125/75 100 Room Air 08/04/17 23:56 48 08/04/17 22:21 67 147/89 08/04/17 21:39 147/69 08/04/17 20:27 76 08/04/17 20:00 98.1 83 18 147/89 96 Room Air 08/04/17 16:00 57 08/04/17 15:37 97.3 78 18 152/73 99 Room Air 08/04/17 12:00 46 08/04/17 11:40 97.1 82 18 143/61 99 Room Air Height (Feet): 5 Height (Inches): 7.00 Weight (Pounds): 170 General Appearance: no acute distress HEENT: normocephalic, atraumatic, anicteric, mucous membranes moist, EOMI, pharynx normal, supple, no JVD Respiratory/Chest: lungs clear, normal breath sounds, no respiratory distress, no accessory muscle use Cardiovascular: normal rate, regular rhythm, no gallop/murmur, no JVD Abdomen: normal bowel sounds, soft, non tender, no organomegaly, non distended Genitourinary: other - + martinez - urine clearer Extremities: no cyanosis Skin: no rash Neurologic/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1) Vancomycin Level Trough 15.7 ug/mL (5.0-12.0) White Blood Count 5.4 K/UL (4.8-10.8) Red Blood Count 3.68 M/UL (4.20-5.40) Hemoglobin 10.9 G/DL (12.0-16.0) Hematocrit 34.4 % (37.0-47.0) Mean Corpuscular Volume 94 FL (80-99) Mean Corpuscular Hemoglobin 29.6 PG (27.0-31.0) Mean Corpuscular Hemoglobin Concent 31.6 G/DL (32.0-36.0) Red Cell Distribution Width 12.7 % (11.6-14.8) Platelet Count 205 K/UL (150-450) Mean Platelet Volume 7.1 FL (6.5-10.1) Neutrophils (%) (Auto) % (45.0-75.0) Lymphocytes (%) (Auto) % (20.0-45.0) Monocytes (%) (Auto) % (1.0-10.0) Eosinophils (%) (Auto) % (0.0-3.0) Basophils (%) (Auto) % (0.0-2.0) Differential Total Cells Counted 100 Neutrophils % (Manual) 72 % (45-75) Lymphocytes % (Manual) 22 % (20-45) Monocytes % (Manual) 6 % (1-10) Eosinophils % (Manual) 0 % (0-3) Basophils % (Manual) 0 % (0-2) Band Neutrophils 0 % (0-8) Platelet Estimate Adequate Platelet Morphology Normal Hypochromasia 1+ Sodium Level 139 MMOL/L (136-145) Potassium Level 4.1 MMOL/L (3.5-5.1) Chloride Level 105 MMOL/L (98-107) Carbon Dioxide Level 29 MMOL/L (21-32) Anion Gap 5 mmol/L (5-15) Blood Urea Nitrogen 15 mg/dL (7-18) Creatinine 1.0 MG/DL (0.55-1.30) Estimat Glomerular Filtration Rate mL/min (>60) Glucose Level 159 MG/DL (74-106) Calcium Level 8.9 MG/DL (8.5-10.1) Laboratory Tests Test 08/05/17 06:45 Prothrombin Time 20.0 SEC (9.30-11.50) H Prothromb Time International Ratio 1.9 (0.9-1.1) H Current Medications Medications (Trade) Dose Ordered Sig/Ricardo Route PRN Reason Start Time Stop Time Status Last Admin Dose Admin Acetaminophen (Tylenol) 650 mg Q4H PRN ORAL Fever/Headache/Mild Pain 07/31/17 19:30 08/30/17 19:29 Aspirin (Ecotrin) 81 mg DAILY ORAL 08/01/17 09:00 08/31/17 08:59 08/04/17 09:03 Carvedilol (Coreg) 6.25 mg EVERY 12 HOURS ORAL 07/31/17 21:00 08/30/17 20:59 08/04/17 22:21 Ceftriaxone Sodium 1 gm/ Dextrose 50 ml @ 100 mls/hr Q24H IVPB 08/03/17 12:00 08/10/17 11:59 08/04/17 12:27 Clonidine HCl (Catapres) 0.1 mg Q8HR PRN ORAL For High Blood Pressure 08/01/17 00:00 08/31/17 00:00 08/03/17 15:09 Dextrose (Dextrose 50%) STAT PRN IV Hypoglycemia 07/31/17 19:30 08/30/17 19:29 Docusate Sodium (Colace) 100 mg TWICE A DAY ORAL 08/01/17 09:00 08/31/17 08:59 08/03/17 17:31 Enalapril Maleate (Vasotec) 2.5 mg EVERY 12 HOURS ORAL 07/31/17 21:00 08/30/17 20:59 08/04/17 21:39 Insulin Aspart (NovoLOG) BEFORE MEALS AND HS SUBQ 07/31/17 21:00 08/30/17 20:59 08/04/17 16:50 Lactulose (Cephulac) 20 gm Q6HR PRN ORAL Constipation 08/01/17 00:15 08/31/17 00:14 Vancomycin HCl (Vanco rx to dose) 1 ea DAILYPRN PRN MISC Per rx protocol 08/01/17 15:00 08/31/17 14:59 Vancomycin/Sodium Chloride 250 ml @ 166.667 mls/hr Q12HR IVPB 08/02/17 10:00 08/07/17 09:59 08/04/17 21:39 Warfarin Sodium (Coumadin per pharmacy) 1 ea DAILY PRN MISC Per rx protocol 07/31/17 19:30 08/30/17 19:29 MIKKI COLON Aug 05, 2017 09:25
[2017-08-05] MEDS: Docusate 100mg cap ORAL SCH ×2 (10:36→17:14)
[2017-08-05] MEDS: Aspirin EC 81mg tab ORAL SCH (10:38)
[2017-08-05] MEDS: Enalapril 2.5mg tab ORAL SCH ×2 (10:38→20:24)
[2017-08-05] MEDS: Vancomycin 750mg/NS 250ml 250 ML IVPB SCH ×2 (11:02→20:25)
--- NOTE | 2017-08-05 11:44 | General Progress Note ---
Assessment/Plan Assessment/Plan 1. Syncope. 2. Urinary tract infection. 3. Recent stroke with right hemiparesis, aphasia, and dysarthria. 4. Diabetes. 5. Hypertension. 6. Hyperlipidemia. BC + s epi dc held due to new + BC w GPC clusters HR 48 - dc beta duarte Subjective ROS Limited/Unobtainable: Yes Allergies: Coded Allergies: PENICILLINS (Unverified Allergy, Unknown, 08/01/17) Uncoded Allergies: PENICILLIN (Allergy, Unknown, 07/31/17) Objective Last 24 Hour Vital Signs Date Time Temp Pulse Resp B/P (MAP) Pulse Ox O2 Delivery O2 Flow Rate FiO2 08/05/17 10:38 143/54 08/05/17 08:00 97.2 48 21 143/54 100 Room Air 08/05/17 04:00 97.2 51 18 132/55 100 Room Air 08/05/17 03:42 54 08/05/17 00:00 97.7 55 18 125/75 100 Room Air 08/04/17 23:56 48 08/04/17 22:21 67 147/89 08/04/17 21:39 147/69 08/04/17 20:27 76 08/04/17 20:00 98.1 83 18 147/89 96 Room Air 08/04/17 16:00 57 08/04/17 15:37 97.3 78 18 152/73 99 Room Air 08/04/17 12:00 46 Laboratory Tests 08/05/17 06:45: Prothrombin Time 20.0H, Prothromb Time International Ratio 1.9H Height (Feet): 5 Height (Inches): 7.00 Weight (Pounds): 170 General Appearance: no apparent distress Cardiovascular: regular rhythm, bradycardia Respiratory/Chest: lungs clear LM HSIEH Aug 05, 2017 11:44
[2017-08-05 12:00] VITALS: BP 144/55
[2017-08-05] MEDS: cefTRIAXone 1 GM in D5W 50 ML IVPB SCH (12:55)
[2017-08-05 16:00] VITALS: BP 133/73
--- NOTE | 2017-08-05 16:15 | Physician Query ---
PLEASE COMPLETE DOCUMENT BEFORE SIGNING Dear Dr. Mitchell Date: 08/05/2017 Vault Service Mechanic/CDS Name: _Shirlene Hudson MD___ Vault Service Mechanic / CDS Phone #_[phone]. [phone] __ Exercise your independent professional judgment when responding to query. Question asked do not imply a particular answer is desired/expected. Clinical Documentation States: "Altered Level of Consciousness" documented in ED Provider Note & "altered mental status" documented by Dr. Hdz Clinical Findings Show: Altered mental status and possible sepsis" as per Dr. Hdz Please indicate the nature and chronicity of the condition below: [] Metabolic Encephalopathy [] Toxic Encephalopathy [x] Toxic - Metabolic Encephalopathy [] Progressive Encephalopathy [] Encephalopathy, Other [] Other: [] Not Applicable Severity: [] Acute [] Chronic [x] Acute on Chronic [] Unable to determine Condition Present on Admission: [x] Yes [] No []Clinically Undeterminable Please also document in your Progress Notes and/or Discharge Summary and indicate if the condition was present on admission. LM HSIEH MD Date [facility]
--- NOTE | 2017-08-05 16:15 | Physician Query ---
PLEASE COMPLETE DOCUMENT BEFORE SIGNING Dear Dr. Mitchell Date: 08/05/2017 Reset Merchandiser/CDS Name: _Shirlene Hudson MD___ Reset Merchandiser / CDS Phone #_[phone]. [phone] __ Exercise your independent professional judgment when responding to query. Question asked do not imply a particular answer is desired/expected. Clinical Documentation States: "Altered Level of Consciousness" documented in ED Provider Note & "altered mental status" documented by Dr. Hdz Clinical Findings Show: Altered mental status and possible sepsis" as per Dr. Hdz Please indicate the nature and chronicity of the condition below: [] Metabolic Encephalopathy [] Toxic Encephalopathy [x] Toxic - Metabolic Encephalopathy [] Progressive Encephalopathy [] Encephalopathy, Other [] Other: [] Not Applicable Severity: [] Acute [] Chronic [x] Acute on Chronic [] Unable to determine Condition Present on Admission: [x] Yes [] No []Clinically Undeterminable Please also document in your Progress Notes and/or Discharge Summary and indicate if the condition was present on admission. LM [facility]SIEH MD [facility]
--- NOTE | 2017-08-05 16:15 | Physician Query ---
PLEASE COMPLETE DOCUMENT BEFORE SIGNING Dear Dr. Mitchell Date: 08/05/2017 Airplane Mechanic/CDS Name: _Shirlene Hudson MD___ Airplane Mechanic / CDS Phone #_[phone]. [phone] __ Exercise your independent professional judgment when responding to query. Question asked do not imply a particular answer is desired/expected. Clinical Documentation States: "Altered Level of Consciousness" documented in ED Provider Note & "altered mental status" documented by Dr. Hdz Clinical Findings Show: Altered mental status and possible sepsis" as per Dr. Hdz Please indicate the nature and chronicity of the condition below: [] Metabolic Encephalopathy [] Toxic Encephalopathy [x] Toxic - Metabolic Encephalopathy [] Progressive Encephalopathy [] Encephalopathy, Other [] Other: [] Not Applicable Severity: [] Acute [] Chronic [x] Acute on Chronic [] Unable to determine Condition Present on Admission: [x] Yes [] No []Clinically Undeterminable Please also document in your Progress Notes and/or Discharge Summary and indicate if the condition was present on admission. LM [facility]SIEH [facility]
[2017-08-05] MEDS ORDERED: Warfarin Sodium 3mg ORAL ONE (17:00)
[2017-08-05 20:00] VITALS: BP 149/65
[2017-08-06 01:00] VITALS: BP 143/90
[2017-08-06 04:00] VITALS: BP 146/69
[2017-08-06] MEDS: NovoLOG Insulin Flexpen SUBQ SCH ×4 (06:28→21:38)
[2017-08-06 06:32] LABS: BASOPHILS % (AUTO) 0.7 % (0.0-2.0); EOSINOPHILS % (AUTO) 2.6 % (0.0-3.0); HEMATOCRIT 31.2 % (37.0-47.0); HEMOGLOBIN 10.5 G/DL (12.0-16.0); LYMPHOCYTES % (AUTO) 20.7 % (20.0-45.0); MEAN CORPUSCULAR VOLUME 93 FL (80-99); MONOCYTES % (AUTO) 7.1 % (1.0-10.0); NEUTROPHILS % (AUTO) 68.8 % (45.0-75.0); PLATELET COUNT 198 K/UL (150-450); RED BLOOD COUNT 3.36 M/UL (4.20-5.40); RED CELL DISTRIBUTION WIDTH 12.9 % (11.6-14.8); WHITE BLOOD COUNT 3.9 K/UL (4.8-10.8)
[2017-08-06 06:48] LABS: INR 2.4 (0.9-1.1)
[2017-08-06 07:11] LABS: ANION GAP 10 mmol/L (5-15); BLOOD UREA NITROGEN 11 mg/dL (7-18); CALCIUM 8.8 MG/DL (8.5-10.1); CARBON DIOXIDE 25 MMOL/L (21-32); CHLORIDE 106 MMOL/L (98-107); CREATININE 0.8 MG/DL (0.55-1.30); POTASSIUM 4.2 MMOL/L (3.5-5.1); SODIUM 141 MMOL/L (136-145)
[2017-08-06 09:00] VITALS: BP 127/59
[2017-08-06] MEDS: Enalapril 2.5mg tab ORAL SCH ×2 (10:13→21:37)
[2017-08-06] MEDS: Aspirin EC 81mg tab ORAL SCH (10:13)
[2017-08-06] MEDS: Docusate 100mg cap ORAL SCH ×2 (10:13→17:59)
[2017-08-06] MEDS: Vancomycin 750mg/NS 250ml 250 ML IVPB SCH ×2 (11:07→21:39)
[2017-08-06] MEDS: cefTRIAXone 1 GM in D5W 50 ML IVPB SCH (13:41)
[2017-08-06 16:00] VITALS: BP 161/72
[2017-08-06] MEDS ORDERED: Vanco pharmacy to dose MISC (16:42)
[2017-08-06] MEDS ORDERED: CEFTRIAXON1 GM/50 ML IV (16:42)
--- NOTE | 2017-08-06 16:42 | Pulmonology Progress Note ---
Assessment/Plan Assessment/Plan 1. Syncope. 2. Urinary tract infection. 3. Recent stroke with right hemiparesis, aphasia, and dysarthria. 4. Diabetes. 5. Hypertension. 6. Hyperlipidemia. BC + s epi; disc w ID and will continue total 14 d vanco HR better - off beta duarte dc when bed available Subjective ROS Limited/Unobtainable: Yes Allergies: Coded Allergies: PENICILLINS (Unverified Allergy, Unknown, 08/01/17) Objective Last 24 Hour Vital Signs Date Time Temp Pulse Resp B/P (MAP) Pulse Ox O2 Delivery O2 Flow Rate FiO2 08/06/17 10:13 148/50 08/06/17 09:00 97.0 98 18 127/59 92 Room Air 08/06/17 04:00 97.5 52 18 146/69 100 Room Air 08/06/17 03:41 49 08/06/17 01:00 97.8 60 18 143/90 100 Room Air 08/06/17 00:00 50 08/05/17 20:24 135/78 08/05/17 20:00 97.9 83 18 149/65 100 Room Air 08/05/17 20:00 66 General Appearance: no acute distress Respiratory/Chest: lungs clear Cardiovascular: normal rate Microbiology Date/Time Source Procedure Growth Status 08/04/17 17:54 Blood Blood Culture - Preliminary Resulted 08/04/17 17:48 Blood Blood Culture - Preliminary NO GROWTH AFTER 24 HOURS Resulted Laboratory Tests 08/06/17 05:20: White Blood Count 3.9L, Red Blood Count 3.36L, Hemoglobin 10.5L, Hematocrit 31.2L, Mean Corpuscular Volume 93, Mean Corpuscular Hemoglobin 31.2H, Mean Corpuscular Hemoglobin Concent 33.7, Red Cell Distribution Width 12.9, Platelet Count 198, Mean Platelet Volume 7.3, Neutrophils (%) (Auto) 68.8, Lymphocytes (% ) (Auto) 20.7, Monocytes (%) (Auto) 7.1, Eosinophils (%) (Auto) 2.6, Basophils ( %) (Auto) 0.7, Prothrombin Time 25.0H, Prothromb Time International Ratio 2.4H, Sodium Level 141, Potassium Level 4.2, Chloride Level 106, Carbon Dioxide Level 25, Anion Gap 10, Blood Urea Nitrogen 11, Creatinine 0.8, Estimat Glomerular Filtration Rate , Glucose Level 122H, Calcium Level 8.8 Current Medications Medications (Trade) Dose Ordered Sig/Ricardo Route PRN Reason Start Time Stop Time Status Last Admin Dose Admin Acetaminophen (Tylenol) 650 mg Q4H PRN ORAL Fever/Headache/Mild Pain 07/31/17 19:30 08/30/17 19:29 Aspirin (Ecotrin) 81 mg DAILY ORAL 08/01/17 09:00 08/31/17 08:59 08/06/17 10:13 Ceftriaxone Sodium 1 gm/ Dextrose 50 ml @ 100 mls/hr Q24H IVPB 08/03/17 12:00 08/10/17 11:59 08/06/17 13:41 Clonidine HCl (Catapres) 0.1 mg Q8HR PRN ORAL For High Blood Pressure 08/01/17 00:00 08/31/17 00:00 08/03/17 15:09 Dextrose (Dextrose 50%) STAT PRN IV Hypoglycemia 07/31/17 19:30 08/30/17 19:29 Docusate Sodium (Colace) 100 mg TWICE A DAY ORAL 08/01/17 09:00 08/31/17 08:59 08/06/17 10:13 Enalapril Maleate (Vasotec) 2.5 mg EVERY 12 HOURS ORAL 07/31/17 21:00 08/30/17 20:59 08/06/17 10:13 Insulin Aspart (NovoLOG) BEFORE MEALS AND HS SUBQ 07/31/17 21:00 08/30/17 20:59 08/06/17 12:27 Lactulose (Cephulac) 20 gm Q6HR PRN ORAL Constipation 08/01/17 00:15 08/31/17 00:14 Vancomycin HCl (Vanco rx to dose) 1 ea DAILYPRN PRN MISC Per rx protocol 08/01/17 15:00 08/31/17 14:59 Vancomycin/Sodium Chloride 250 ml @ 166.667 mls/hr Q12HR IVPB 08/05/17 11:00 08/10/17 10:59 08/06/17 11:07 Warfarin Sodium (Coumadin per pharmacy) 1 ea DAILY PRN MISC Per rx protocol 07/31/17 19:30 08/30/17 19:29 Warfarin Sodium (Coumadin) 2.5 mg COUMADIN ONCE ORAL 08/06/17 17:00 08/06/17 17:01 LM HSIEH Aug 06, 2017 16:42
[2017-08-06] MEDS ORDERED: Warfarin Sodium 2.5mg ORAL ONE (17:00)
[2017-08-06 20:00] VITALS: BP 128/51
[2017-08-07] VITALS: BP 156/81
[2017-08-07 04:00] VITALS: BP 134/55
[2017-08-07] MEDS: NovoLOG Insulin Flexpen SUBQ SCH ×4 (05:25→21:37)
[2017-08-07 08:00] VITALS: BP 169/81
[2017-08-07] MEDS: Docusate 100mg cap ORAL SCH ×2 (09:03→17:06)
[2017-08-07] MEDS: Enalapril 2.5mg tab ORAL SCH ×2 (09:03→21:32)
[2017-08-07] MEDS: Vancomycin 750mg/NS 250ml 250 ML IVPB SCH ×2 (09:03→23:00)
[2017-08-07] MEDS: Aspirin EC 81mg tab ORAL SCH (09:03)
[2017-08-07] MEDS: cefTRIAXone 1 GM in D5W 50 ML IVPB SCH (11:59)
[2017-08-07 12:00] VITALS: BP 153/101
[2017-08-07 13:11] LABS: INR 2.3 (0.9-1.1)
--- NOTE | 2017-08-07 13:24 | Wound Care Consultation ---
Wound Assessment Wound Assessment : Wound Present on Admission: Yes New Wound: No Status Change of Wound: No Wound Location Body Site Modif: mid Wound Location Body Site: sacral Wound Type: pressure ulcer Denisha Test: Does not Denisha Pressure Ulcer Stage: III Wound Thickness: Partial Thickness Wound Length: 2.5 Wound Width: 2.0 Wound Depth: 0.1 Percent of Wound Avilla/Red: 70 Percent of Wound Bed Yellow/Wh: 30 Wound Drainage Description: Serosanguineous Wound Drainage Amount: Scant Wound Drainage Odor: None/Absent Tissue Surrounding Wound: Macerated Wound General Appearance: Reddened, Draining Wound Comment #1 Mid sacral stage III pressure ulcer noted smaller in size and 30% yellowish slough. Will change wound care to Therahoney Gel and Cont to monitor. #2 Right buttock stage II pressure ulcer. RESOLVED!! ARBEN ASHTON RN Aug 07, 2017 13:24
--- NOTE | 2017-08-07 13:24 | Wound Care Consultation ---
Wound Assessment Wound Assessment : Wound Present on Admission: Yes New Wound: No Status Change of Wound: No Wound Location Body Site Modif: mid Wound Location Body Site: sacral Wound Type: pressure ulcer Denisha Test: Does not Denisha Pressure Ulcer Stage: III Wound Thickness: Partial Thickness Wound Length: 2.5 Wound Width: 2.0 Wound Depth: 0.1 Percent of Wound [place]/Red: 70 Percent of Wound Bed Yellow/Wh: 30 Wound Drainage Description: Serosanguineous Wound Drainage Amount: Scant Wound Drainage Odor: None/Absent Tissue Surrounding Wound: Macerated Wound General Appearance: Reddened, Draining Wound Comment #1 Mid sacral stage III pressure ulcer noted smaller in size and 30% yellowish slough. Will change wound care to Therahoney Gel and Cont to monitor. #2 Right buttock stage II pressure ulcer. RESOLVED!! ARBEN ASHTON RN Aug 07, 2017 13:24
--- NOTE | 2017-08-07 13:24 | Wound Care Consultation ---
Wound Assessment Wound Assessment : Wound Present on Admission: Yes New Wound: No Status Change of Wound: No Wound Location Body Site Modif: mid Wound Location Body Site: sacral Wound Type: pressure ulcer Denisha Test: Does not Denisha Pressure Ulcer Stage: III Wound Thickness: Partial Thickness Wound Length: 2.5 Wound Width: 2.0 Wound Depth: 0.1 Percent of Wound [place]/Red: 70 Percent of Wound Bed Yellow/Wh: 30 Wound Drainage Description: Serosanguineous Wound Drainage Amount: Scant Wound Drainage Odor: None/Absent Tissue Surrounding Wound: Macerated Wound General Appearance: Reddened, Draining Wound Comment #1 Mid sacral stage III pressure ulcer noted smaller in size and 30% yellowish slough. Will change wound care to Therahoney Gel and Cont to monitor. #2 Right buttock stage II pressure ulcer. RESOLVED!! ARBEN ASHTON RN Aug 07, 2017 13:24
--- NOTE | 2017-08-07 14:12 | Infectious Diseases Prog Note ---
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 Benson and consultants 6) d/w Dr. Benson Subjective Constitutional: Denies: fever HEENT: Denies: congestion Respiratory: Denies: shortness of breath Cardiovascular: Denies: chest pain Gastrointestinal/Abdominal: Denies: nausea, vomiting, diarrhea Genitourinary: Reports: other - + martinez, Denies: hematuria Neurologic: Denies: headache Psychiatric: Denies: depression Skin: Denies: rash Hematologic: Denies: bleeding Musculoskeletal: Denies: pain Allergies: Coded Allergies: PENICILLINS (Unverified Allergy, Unknown, 08/01/17) Objective Vital Signs Last 24 Hour Vital Signs Date Time Temp Pulse Resp B/P (MAP) Pulse Ox O2 Delivery O2 Flow Rate FiO2 08/07/17 09:03 134/55 08/07/17 08:00 97.5 77 18 169/81 100 Room Air 08/07/17 04:00 97.3 55 20 134/55 100 Room Air 08/07/17 04:00 46 08/07/17 00:00 97.5 78 18 156/81 100 Room Air 08/07/17 00:00 83 08/06/17 21:37 158/73 08/06/17 20:00 83 08/06/17 20:00 98.8 99 20 128/51 99 Room Air 08/06/17 16:00 97.1 98 19 161/72 Room Air 08/06/17 16:00 46 Height (Feet): 5 Height (Inches): 7.00 Weight (Pounds): 170 General Appearance: no acute distress HEENT: normocephalic, anicteric, mucous membranes moist, EOMI, pharynx normal, supple, no JVD Respiratory/Chest: lungs clear, normal breath sounds, no respiratory distress, no accessory muscle use, decreased breath sounds Cardiovascular: normal rate, regular rhythm, no gallop/murmur, no JVD Abdomen: normal bowel sounds, soft, non tender, no organomegaly, non distended Genitourinary: other - + martinez - urine clearer Extremities: no cyanosis Skin: no rash, no ulcers Neurologic/Psychiatric: alert, responsive Lymphatic: no neck adenopathy Musculoskeletal: no effusion Objective 08/04 - chest x-ray - Findings: Slightly better inspiration on the current exam. Slightly increased left basilar atelectatic change, despite this. Surgical clips are again demonstrated in the right axilla. Impression: Slightly increased left basilar atelectasis, over 4 days. No acute process otherwise Microbiology Date/Time Source Procedure Growth Status 08/04/17 17:54 Blood Blood Culture - Final Staphylococcus Sp Coag Neg Complete 07/31/17 18:00 Nasal Nares MRSA Culture - Final NO METHICILLIN RESISTANT STAPH AUREUS... Complete 07/31/17 13:46 Urine,Clean Catch Urine Culture - Final Klebsiella Pneumoniae Complete 07/31/17 18:00 Rectum VRE Culture - Final NO VANCOMYCIN RESISTANT ENTEROCOCCUS ... Complete Microbiology Date/Time Source Procedure Growth Status 08/04/17 17:54 Blood Blood Culture - Final Staphylococcus Sp Coag Neg Complete 08/04/17 17:48 Blood Blood Culture - Preliminary NO GROWTH AFTER 48 HOURS Resulted Labs Test 08/05/17 06:45 08/06/17 05:20 08/07/17 12:35 Prothrombin Time 20.0 SEC (9.30-11.50) 25.0 SEC (9.30-11.50) 23.8 SEC (9.30-11.50) Prothromb Time International Ratio 1.9 (0.9-1.1) 2.4 (0.9-1.1) 2.3 (0.9-1.1) White Blood Count 3.9 K/UL (4.8-10.8) Red Blood Count 3.36 M/UL (4.20-5.40) Hemoglobin 10.5 G/DL (12.0-16.0) Hematocrit 31.2 % (37.0-47.0) Mean Corpuscular Volume 93 FL (80-99) Mean Corpuscular Hemoglobin 31.2 PG (27.0-31.0) Mean Corpuscular Hemoglobin Concent 33.7 G/DL (32.0-36.0) Red Cell Distribution Width 12.9 % (11.6-14.8) Platelet Count 198 K/UL (150-450) Mean Platelet Volume 7.3 FL (6.5-10.1) Neutrophils (%) (Auto) 68.8 % (45.0-75.0) Lymphocytes (%) (Auto) 20.7 % (20.0-45.0) Monocytes (%) (Auto) 7.1 % (1.0-10.0) Eosinophils (%) (Auto) 2.6 % (0.0-3.0) Basophils (%) (Auto) 0.7 % (0.0-2.0) Sodium Level 141 MMOL/L (136-145) Potassium Level 4.2 MMOL/L (3.5-5.1) Chloride Level 106 MMOL/L (98-107) Carbon Dioxide Level 25 MMOL/L (21-32) Anion Gap 10 mmol/L (5-15) Blood Urea Nitrogen 11 mg/dL (7-18) Creatinine 0.8 MG/DL (0.55-1.30) Estimat Glomerular Filtration Rate mL/min (>60) Glucose Level 122 MG/DL (74-106) Calcium Level 8.8 MG/DL (8.5-10.1) Laboratory Tests Test 08/07/17 12:35 Prothrombin Time 23.8 SEC (9.30-11.50) H Prothromb Time International Ratio 2.3 (0.9-1.1) H Current Medications Medications (Trade) Dose Ordered Sig/Ricardo Route PRN Reason Start Time Stop Time Status Last Admin Dose Admin Acetaminophen (Tylenol) 650 mg Q4H PRN ORAL Fever/Headache/Mild Pain 07/31/17 19:30 08/30/17 19:29 Aspirin (Ecotrin) 81 mg DAILY ORAL 08/01/17 09:00 08/31/17 08:59 08/07/17 09:03 Ceftriaxone Sodium 1 gm/ Dextrose 50 ml @ 100 mls/hr Q24H IVPB 08/03/17 12:00 08/10/17 11:59 08/07/17 11:59 Clonidine HCl (Catapres) 0.1 mg Q8HR PRN ORAL For High Blood Pressure 08/01/17 00:00 08/31/17 00:00 08/03/17 15:09 Dextrose (Dextrose 50%) STAT PRN IV Hypoglycemia 07/31/17 19:30 08/30/17 19:29 Docusate Sodium (Colace) 100 mg TWICE A DAY ORAL 08/01/17 09:00 08/31/17 08:59 08/07/17 09:03 Enalapril Maleate (Vasotec) 2.5 mg EVERY 12 HOURS ORAL 07/31/17 21:00 08/30/17 20:59 08/07/17 09:03 Insulin Aspart (NovoLOG) BEFORE MEALS AND HS SUBQ 07/31/17 21:00 08/30/17 20:59 08/07/17 11:58 Lactulose (Cephulac) 20 gm Q6HR PRN ORAL Constipation 08/01/17 00:15 08/31/17 00:14 Vancomycin HCl (Vanco rx to dose) 1 ea DAILYPRN PRN MISC Per rx protocol 08/01/17 15:00 08/31/17 14:59 Vancomycin/Sodium Chloride 250 ml @ 166.667 mls/hr Q12HR IVPB 08/05/17 11:00 08/10/17 10:59 08/07/17 09:03 Warfarin Sodium (Coumadin per pharmacy) 1 ea DAILY PRN MISC Per rx protocol 07/31/17 19:30 08/30/17 19:29 Warfarin Sodium (Coumadin) 5 mg COUMADIN ONCE ORAL 08/07/17 17:00 08/07/17 17:01 MIKKI COLON Aug 07, 2017 14:12
[2017-08-07 16:00] VITALS: BP 135/94
[2017-08-07] MEDS: Ascorbic Acid 500mg tab ORAL SCH (16:47)
--- NOTE | 2017-08-07 16:48 | Pulmonology Progress Note ---
Assessment/Plan Assessment/Plan 1. Syncope. 2. Urinary tract infection. 3. Recent stroke with right hemiparesis, aphasia, and dysarthria. 4. Diabetes. 5. Hypertension. 6. Hyperlipidemia. waiting for snf placement BC + s epi; disc w ID and will continue total 14 d vanco HR better - off beta duarte dc when bed available Subjective ROS Limited/Unobtainable: Yes Constitutional: Denies: fever Respiratory: Reports: no symptoms Allergies: Coded Allergies: PENICILLINS (Unverified Allergy, Unknown, 08/01/17) Objective Last 24 Hour Vital Signs Date Time Temp Pulse Resp B/P (MAP) Pulse Ox O2 Delivery O2 Flow Rate FiO2 08/07/17 09:03 134/55 08/07/17 08:00 97.5 77 18 169/81 100 Room Air 08/07/17 04:00 97.3 55 20 134/55 100 Room Air 08/07/17 04:00 46 08/07/17 00:00 97.5 78 18 156/81 100 Room Air 08/07/17 00:00 83 08/06/17 21:37 158/73 08/06/17 20:00 83 08/06/17 20:00 98.8 99 20 128/51 99 Room Air General Appearance: no acute distress HEENT: normocephalic, atraumatic Respiratory/Chest: lungs clear Cardiovascular: normal rate Abdomen: soft, non tender Microbiology Date/Time Source Procedure Growth Status 08/04/17 17:54 Blood Blood Culture - Final Staphylococcus Sp Coag Neg Complete 08/04/17 17:48 Blood Blood Culture - Preliminary NO GROWTH AFTER 48 HOURS Resulted Laboratory Tests 08/07/17 12:35: Prothrombin Time 23.8H, Prothromb Time International Ratio 2.3H Current Medications Medications (Trade) Dose Ordered Sig/Ricardo Route PRN Reason Start Time Stop Time Status Last Admin Dose Admin Acetaminophen (Tylenol) 650 mg Q4H PRN ORAL Fever/Headache/Mild Pain 07/31/17 19:30 08/30/17 19:29 Ascorbic Acid (Vitamin C) 500 mg DAILY ORAL 08/07/17 16:30 09/06/17 16:29 Aspirin (Ecotrin) 81 mg DAILY ORAL 08/01/17 09:00 08/31/17 08:59 08/07/17 09:03 Ceftriaxone Sodium 1 gm/ Dextrose 50 ml @ 100 mls/hr Q24H IVPB 08/03/17 12:00 08/10/17 11:59 08/07/17 11:59 Clonidine HCl (Catapres) 0.1 mg Q8HR PRN ORAL For High Blood Pressure 08/01/17 00:00 08/31/17 00:00 08/03/17 15:09 Dextrose (Dextrose 50%) STAT PRN IV Hypoglycemia 07/31/17 19:30 08/30/17 19:29 Docusate Sodium (Colace) 100 mg TWICE A DAY ORAL 08/01/17 09:00 08/31/17 08:59 08/07/17 09:03 Enalapril Maleate (Vasotec) 2.5 mg EVERY 12 HOURS ORAL 07/31/17 21:00 08/30/17 20:59 08/07/17 09:03 Insulin Aspart (NovoLOG) BEFORE MEALS AND HS SUBQ 07/31/17 21:00 08/30/17 20:59 08/07/17 11:58 Lactulose (Cephulac) 20 gm Q6HR PRN ORAL Constipation 08/01/17 00:15 08/31/17 00:14 Multivitamins (Multivitamins) 1 tab DAILY ORAL 08/07/17 16:30 09/06/17 16:29 Vancomycin HCl (Vanco rx to dose) 1 ea DAILYPRN PRN MISC Per rx protocol 08/01/17 15:00 08/31/17 14:59 Vancomycin/Sodium Chloride 250 ml @ 166.667 mls/hr Q12HR IVPB 08/05/17 11:00 08/10/17 10:59 08/07/17 09:03 Warfarin Sodium (Coumadin per pharmacy) 1 ea DAILY PRN MISC Per rx protocol 07/31/17 19:30 08/30/17 19:29 Warfarin Sodium (Coumadin) 5 mg COUMADIN ONCE ORAL 08/07/17 17:00 08/07/17 17:01 LM HSIEH Aug 07, 2017 16:48
[2017-08-07] MEDS ORDERED: Warfarin Sodium 5mg ORAL ONE (17:00)
[2017-08-07 20:00] VITALS: BP 132/56
[2017-08-08] VITALS (7 sets, daily range): BP systolic 112–150; BP diastolic 60–113
[2017-08-08] MEDS: NovoLOG Insulin Flexpen SUBQ SCH ×4 (06:30→21:00)
[2017-08-08] MEDS: Ascorbic Acid 500mg tab ORAL SCH (08:40)
[2017-08-08] MEDS: Aspirin EC 81mg tab ORAL SCH (08:40)
[2017-08-08] MEDS: Enalapril 2.5mg tab ORAL SCH ×2 (08:41→21:14)
[2017-08-08] MEDS: Vancomycin 750mg/NS 250ml 250 ML IVPB SCH ×2 (08:41→21:14)
[2017-08-08] MEDS: Docusate 100mg cap ORAL SCH ×2 (08:41→17:07)
[2017-08-08 09:02] LABS: ANION GAP 5 mmol/L (5-15); BLOOD UREA NITROGEN 12 mg/dL (7-18); CALCIUM 9.4 MG/DL (8.5-10.1); CARBON DIOXIDE 30 MMOL/L (21-32); CHLORIDE 103 MMOL/L (98-107); POTASSIUM 4.5 MMOL/L (3.5-5.1); SODIUM 138 MMOL/L (136-145)
[2017-08-08 09:20] LABS: BASOPHILS % (AUTO) 1.3 % (0.0-2.0); EOSINOPHILS % (AUTO) 1.8 % (0.0-3.0); HEMATOCRIT 36.8 % (37.0-47.0); HEMOGLOBIN 12.1 G/DL (12.0-16.0); LYMPHOCYTES % (AUTO) 16.4 % (20.0-45.0); MEAN CORPUSCULAR VOLUME 93 FL (80-99); MONOCYTES % (AUTO) 5.2 % (1.0-10.0); NEUTROPHILS % (AUTO) 75.3 % (45.0-75.0); PLATELET COUNT 236 K/UL (150-450); RED BLOOD COUNT 3.96 M/UL (4.20-5.40); RED CELL DISTRIBUTION WIDTH 13.2 % (11.6-14.8); WHITE BLOOD COUNT 4.7 K/UL (4.8-10.8)
[2017-08-08 09:24] LABS: INR 1.8 (0.9-1.1)
[2017-08-08] MEDS: cefTRIAXone 1 GM in D5W 50 ML IVPB SCH (11:11)
--- NOTE | 2017-08-08 12:51 | Pulmonology Progress Note ---
Assessment/Plan Assessment/Plan 1. Syncope. 2. Urinary tract infection. 3. Recent stroke with right hemiparesis, aphasia, and dysarthria. 4. Diabetes. 5. Hypertension. 6. Hyperlipidemia. waiting for snf placement BC + s epi; no fevers or signs of sepsis disc w ID and will continue total 14 d vanco ne when bed available Subjective ROS Limited/Unobtainable: Yes Allergies: Coded Allergies: PENICILLINS (Unverified Allergy, Unknown, 08/01/17) Objective Last 24 Hour Vital Signs Date Time Temp Pulse Resp B/P (MAP) Pulse Ox O2 Delivery O2 Flow Rate FiO2 08/08/17 12:13 97.3 60 20 131/60 99 Nasal Cannula 2.0 08/08/17 09:07 97.7 97 20 138/80 100 Room Air 08/08/17 08:41 150/81 08/08/17 08:00 72 08/08/17 08:00 97.2 97 20 138/113 100 Room Air 08/08/17 06:30 67 08/08/17 04:00 97.0 108 20 150/81 97 Room Air 08/08/17 00:00 69 08/08/17 00:00 96.9 121 16 112/62 100 Room Air 08/07/17 21:32 135/94 08/07/17 20:00 82 08/07/17 20:00 96.3 55 16 132/56 Room Air 100.0 08/07/17 16:00 98.1 108 18 135/94 100 Room Air 08/07/17 16:00 91 Intake and Output 08/08/17 08/09/17 19:00 07:00 Intake Total 100 ml Output Total 300 ml Balance -200 ml Intake Oral 100 ml Output Urine Total 300 ml General Appearance: no acute distress HEENT: atraumatic, anicteric Respiratory/Chest: lungs clear Cardiovascular: normal rate Laboratory Tests 08/07/17 21:45: Vancomycin Level Trough 17.6H 08/08/17 08:30: White Blood Count 4.7L, Red Blood Count 3.96L, Hemoglobin 12.1, Hematocrit 36.8L , Mean Corpuscular Volume 93, Mean Corpuscular Hemoglobin 30.6, Mean Corpuscular Hemoglobin Concent 32.9, Red Cell Distribution Width 13.2, Platelet Count 236, Mean Platelet Volume 7.2, Neutrophils (%) (Auto) 75.3H, Lymphocytes ( %) (Auto) 16.4L, Monocytes (%) (Auto) 5.2, Eosinophils (%) (Auto) 1.8, Basophils (%) (Auto) 1.3, Prothrombin Time 18.8H, Prothromb Time International Ratio 1.8H, Sodium Level 138, Potassium Level 4.5, Chloride Level 103, Carbon Dioxide Level 30, Anion Gap 5, Blood Urea Nitrogen 12, Creatinine 1.0, Estimat Glomerular Filtration Rate , Glucose Level 125H, Calcium Level 9.4 Current Medications Medications (Trade) Dose Ordered Sig/Ricardo Route PRN Reason Start Time Stop Time Status Last Admin Dose Admin Acetaminophen (Tylenol) 650 mg Q4H PRN ORAL Fever/Headache/Mild Pain 07/31/17 19:30 08/30/17 19:29 Ascorbic Acid (Vitamin C) 500 mg DAILY ORAL 08/07/17 16:30 09/06/17 16:29 08/08/17 08:40 Aspirin (Ecotrin) 81 mg DAILY ORAL 08/01/17 09:00 08/31/17 08:59 08/08/17 08:40 Ceftriaxone Sodium 1 gm/ Dextrose 50 ml @ 100 mls/hr Q24H IVPB 08/03/17 12:00 08/10/17 11:59 08/08/17 11:11 Clonidine HCl (Catapres) 0.1 mg Q8HR PRN ORAL For High Blood Pressure 08/01/17 00:00 08/31/17 00:00 08/03/17 15:09 Dextrose (Dextrose 50%) STAT PRN IV Hypoglycemia 07/31/17 19:30 08/30/17 19:29 Docusate Sodium (Colace) 100 mg TWICE A DAY ORAL 08/01/17 09:00 08/31/17 08:59 08/08/17 08:41 Enalapril Maleate (Vasotec) 2.5 mg EVERY 12 HOURS ORAL 07/31/17 21:00 08/30/17 20:59 08/08/17 08:41 Insulin Aspart (NovoLOG) BEFORE MEALS AND HS SUBQ 07/31/17 21:00 08/30/17 20:59 08/08/17 11:08 Lactulose (Cephulac) 20 gm Q6HR PRN ORAL Constipation 08/01/17 00:15 08/31/17 00:14 Multivitamins (Multivitamins) 1 tab DAILY ORAL 08/07/17 16:30 09/06/17 16:29 08/08/17 08:40 Vancomycin HCl (Vanco rx to dose) 1 ea DAILYPRN PRN MISC Per rx protocol 08/01/17 15:00 08/31/17 14:59 Vancomycin/Sodium Chloride 250 ml @ 166.667 mls/hr Q12HR IVPB 08/05/17 11:00 08/10/17 10:59 08/08/17 08:41 Warfarin Sodium (Coumadin per pharmacy) 1 ea DAILY PRN MISC Per rx protocol 07/31/17 19:30 08/30/17 19:29 Warfarin Sodium (Coumadin) 6 mg COUMADIN ONCE ORAL 08/08/17 17:00 08/08/17 17:01 LM HSIEH Aug 08, 2017 12:51
[2017-08-08] MEDS ORDERED: Warfarin Sodium 3mg ORAL ONE (17:00)
[2017-08-09] VITALS (7 sets, daily range): BP systolic 136–157; BP diastolic 59–84
[2017-08-09] MEDS ORDERED: Lactulose 20gm/30ml UDC ORAL PRN (03:34)
[2017-08-09] MEDS: NovoLOG Insulin Flexpen SUBQ SCH ×4 (06:30→20:35)
[2017-08-09] MEDS ORDERED: Docusate 100mg cap ORAL SCH (09:00)
[2017-08-09] MEDS: Vancomycin 750mg/NS 250ml 250 ML IVPB SCH ×2 (09:50→20:25)
[2017-08-09] MEDS: Ascorbic Acid 500mg tab ORAL SCH (09:51)
[2017-08-09] MEDS: Enalapril 2.5mg tab ORAL SCH ×2 (09:51→20:25)
[2017-08-09] MEDS: Aspirin EC 81mg tab ORAL SCH (09:51)
[2017-08-09] MEDS ORDERED: Tubing IV Secondary IV ONE (11:47)
[2017-08-09] MEDS ORDERED: NS 275ml ONE (11:47)
[2017-08-09 11:54] LABS: INR 1.6 (0.9-1.1)
[2017-08-09] MEDS: cefTRIAXone 1 GM in D5W 50 ML IVPB SCH (12:04)
--- NOTE | 2017-08-09 14:31 | Infectious Diseases Prog Note ---
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 Benson and consultants 6) d/w Dr. Benson Subjective Constitutional: Denies: fever HEENT: Denies: congestion Respiratory: Denies: shortness of breath Cardiovascular: Denies: chest pain Gastrointestinal/Abdominal: Denies: nausea, vomiting, diarrhea Genitourinary: Reports: other - + martinez Neurologic: Denies: headache Psychiatric: Denies: depression Skin: Denies: rash Hematologic: Denies: bleeding Musculoskeletal: Denies: pain Allergies: Coded Allergies: PENICILLINS (Unverified Allergy, Unknown, 08/01/17) Objective Vital Signs Last 24 Hour Vital Signs Date Time Temp Pulse Resp B/P (MAP) Pulse Ox O2 Delivery O2 Flow Rate FiO2 08/09/17 11:54 96.8 103 18 136/84 100 Nasal Cannula 2.0 18 08/09/17 09:51 141/73 08/09/17 08:11 95.9 62 18 141/73 98 08/09/17 03:30 98.1 72 18 151/59 Room Air 08/09/17 00:00 66 08/09/17 00:00 98.1 75 18 138/84 98 Room Air 08/08/17 21:14 134/88 08/08/17 20:00 84 08/08/17 20:00 98.1 55 18 134/88 96 Room Air 08/08/17 16:50 98.2 65 20 121/68 95 Room Air 08/08/17 16:00 82 Height (Feet): 5 Height (Inches): 7.00 Weight (Pounds): 170 General Appearance: no acute distress HEENT: normocephalic, atraumatic, anicteric, mucous membranes moist, EOMI, pharynx normal, supple, no JVD Respiratory/Chest: normal breath sounds, no respiratory distress, no accessory muscle use Cardiovascular: normal rate, regular rhythm, no gallop/murmur, no JVD Abdomen: normal bowel sounds, soft, non tender, no organomegaly, non distended Genitourinary: other - + martinez - urine clearer Extremities: no cyanosis Skin: no rash 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 Slightly increased left basilar atelectatic change, despite this. Surgical clips are again demonstrated in the right axilla. Impression: Slightly increased left basilar atelectasis, over 4 days. No acute process otherwise Microbiology Date/Time Source Procedure Growth Status 08/04/17 17:54 Blood Blood Culture - Final Staphylococcus Sp Coag Neg Complete 07/31/17 18:00 Nasal Nares MRSA Culture - Final NO METHICILLIN RESISTANT STAPH AUREUS... Complete 07/31/17 13:46 Urine,Clean Catch Urine Culture - Final Klebsiella Pneumoniae Complete 07/31/17 18:00 Rectum VRE Culture - Final NO VANCOMYCIN RESISTANT ENTEROCOCCUS ... Complete Labs Test 08/07/17 12:35 08/07/17 21:45 08/08/17 08:30 08/09/17 10:50 Prothrombin Time 23.8 SEC (9.30-11.50) 18.8 SEC (9.30-11.50) 16.7 SEC (9.30-11.50) Prothromb Time International Ratio 2.3 (0.9-1.1) 1.8 (0.9-1.1) 1.6 (0.9-1.1) Vancomycin Level Trough 17.6 ug/mL (5.0-12.0) White Blood Count 4.7 K/UL (4.8-10.8) Red Blood Count 3.96 M/UL (4.20-5.40) Hemoglobin 12.1 G/DL (12.0-16.0) Hematocrit 36.8 % (37.0-47.0) Mean Corpuscular Volume 93 FL (80-99) Mean Corpuscular Hemoglobin 30.6 PG (27.0-31.0) Mean Corpuscular Hemoglobin Concent 32.9 G/DL (32.0-36.0) Red Cell Distribution Width 13.2 % (11.6-14.8) Platelet Count 236 K/UL (150-450) Mean Platelet Volume 7.2 FL (6.5-10.1) Neutrophils (%) (Auto) 75.3 % (45.0-75.0) Lymphocytes (%) (Auto) 16.4 % (20.0-45.0) Monocytes (%) (Auto) 5.2 % (1.0-10.0) Eosinophils (%) (Auto) 1.8 % (0.0-3.0) Basophils (%) (Auto) 1.3 % (0.0-2.0) Sodium Level 138 MMOL/L (136-145) Potassium Level 4.5 MMOL/L (3.5-5.1) Chloride Level 103 MMOL/L (98-107) Carbon Dioxide Level 30 MMOL/L (21-32) Anion Gap 5 mmol/L (5-15) Blood Urea Nitrogen 12 mg/dL (7-18) Creatinine 1.0 MG/DL (0.55-1.30) Estimat Glomerular Filtration Rate mL/min (>60) Glucose Level 125 MG/DL (74-106) Calcium Level 9.4 MG/DL (8.5-10.1) Laboratory Tests Test 08/09/17 10:50 Prothrombin Time 16.7 SEC (9.30-11.50) H Prothromb Time International Ratio 1.6 (0.9-1.1) H Current Medications Medications (Trade) Dose Ordered Sig/Ricardo Route PRN Reason Start Time Stop Time Status Last Admin Dose Admin Acetaminophen (Tylenol) 650 mg Q4H PRN ORAL Fever/Headache/Mild Pain 08/09/17 03:30 08/30/17 19:29 Ascorbic Acid (Vitamin C) 500 mg DAILY ORAL 08/09/17 09:00 09/06/17 16:29 08/09/17 09:51 Aspirin (Ecotrin) 81 mg DAILY ORAL 08/09/17 09:00 08/31/17 08:59 08/09/17 09:51 Ceftriaxone Sodium 1 gm/ Dextrose 50 ml @ 100 mls/hr Q24H IVPB 08/09/17 12:00 08/13/17 11:59 08/09/17 12:04 Clonidine HCl (Catapres) 0.1 mg Q8H PRN ORAL For High Blood Pressure 08/09/17 03:33 09/08/17 03:32 Dextrose (Dextrose 50%) STAT PRN IV Hypoglycemia 08/09/17 03:34 08/30/17 03:33 Docusate Sodium (Colace) 100 mg TWICE A DAY ORAL 08/09/17 09:00 08/31/17 08:59 08/09/17 09:51 Enalapril Maleate (Vasotec) 2.5 mg EVERY 12 HOURS ORAL 08/09/17 09:00 08/30/17 20:59 08/09/17 09:51 Insulin Aspart (NovoLOG) BEFORE MEALS AND HS SUBQ 08/09/17 06:30 08/30/17 20:59 08/09/17 11:59 Lactulose (Cephulac) 20 gm Q6H PRN ORAL Constipation 08/09/17 03:34 09/08/17 03:33 Multivitamins (Multivitamins) 1 tab DAILY ORAL 08/09/17 09:00 09/06/17 16:29 08/09/17 09:51 Vancomycin HCl (Vanco rx to dose) 1 ea DAILYPRN PRN MISC Per rx protocol 08/09/17 15:00 08/31/17 14:59 Vancomycin/Sodium Chloride 250 ml @ 166.667 mls/hr Q12HR IVPB 08/09/17 09:00 08/19/17 08:59 08/09/17 09:50 Warfarin Sodium (Coumadin per pharmacy) 1 ea DAILY PRN MISC Per rx protocol 08/09/17 09:00 08/30/17 19:29 Warfarin Sodium (Coumadin) 7.5 mg COUMADIN ONCE ORAL 08/09/17 17:00 08/09/17 17:01 MIKKI COLON Aug 09, 2017 14:31
[2017-08-09] MEDS ORDERED: Warfarin Sodium 7.5mg ORAL ONE (17:00)
[2017-08-09] MEDS: Docusate 100mg/10ml Liq NG SCH (17:15)
--- NOTE | 2017-08-09 21:03 | Pulmonology Progress Note ---
Assessment/Plan Assessment/Plan 1. Syncope. 2. Urinary tract infection. 3. Recent stroke with right hemiparesis, aphasia, and dysarthria. 4. Diabetes. 5. Hypertension. 6. Hyperlipidemia. waiting for snf placement BC + s epi; no fevers or signs of sepsis disc w ID and will continue total 14 d [facility] when bed available--still pending per CM Subjective ROS Limited/Unobtainable: Yes Allergies: Coded Allergies: PENICILLINS (Unverified Allergy, Unknown, 08/01/17) Subjective no new events no distress on o2 tolerating po with assistance, modified no cp or fever noted does not get out of bed positive martinez cath Objective Last 24 Hour Vital Signs Date Time Temp Pulse Resp B/P (MAP) Pulse Ox O2 Delivery O2 Flow Rate FiO2 08/09/17 20:25 141/62 08/09/17 20:20 97.7 80 16 141/62 98 Room Air 08/09/17 17:24 98.2 82 16 151/61 99 Room Air 08/09/17 11:54 96.8 103 18 136/84 100 Nasal Cannula 2.0 18 08/09/17 09:51 141/73 08/09/17 08:11 95.9 62 18 141/73 98 08/09/17 03:30 98.1 72 18 151/59 Room Air 08/09/17 00:00 66 08/09/17 00:00 98.1 75 18 138/84 98 Room Air 08/08/17 21:14 134/88 Intake and Output 08/09/17 08/10/17 19:00 07:00 Intake Total 1020.000 ml Output Total 700 ml Balance 320.000 ml Intake Oral 720 ml IV Total 300.000 ml Output Urine Total 700 ml General Appearance: cachetic HEENT: atraumatic, anicteric Respiratory/Chest: lungs clear, normal breath sounds Cardiovascular: normal rate, regular rhythm Abdomen: soft, non tender, no organomegaly Neurologic/Psychiatric: disoriented Laboratory Tests 08/09/17 10:50: Prothrombin Time 16.7H, Prothromb Time International Ratio 1.6H Current Medications Medications (Trade) Dose Ordered Sig/Ricardo Route PRN Reason Start Time Stop Time Status Last Admin Dose Admin Acetaminophen (Tylenol) 650 mg Q4H PRN ORAL Fever/Headache/Mild Pain 08/09/17 03:30 08/30/17 19:29 Ascorbic Acid (Vitamin C) 500 mg DAILY ORAL 08/09/17 09:00 09/06/17 16:29 08/09/17 09:51 Aspirin (Ecotrin) 81 mg DAILY ORAL 08/09/17 09:00 08/31/17 08:59 08/09/17 09:51 Ceftriaxone Sodium 1 gm/ Dextrose 50 ml @ 100 mls/hr Q24H IVPB 08/09/17 12:00 08/13/17 11:59 08/09/17 12:04 Clonidine HCl (Catapres) 0.1 mg Q8H PRN ORAL For High Blood Pressure 08/09/17 03:33 09/08/17 03:32 Dextrose (Dextrose 50%) STAT PRN IV Hypoglycemia 08/09/17 03:34 08/30/17 03:33 Docusate Sodium (Colace) 100 mg TWICE A DAY NG 08/09/17 18:00 09/08/17 17:59 08/09/17 17:15 Enalapril Maleate (Vasotec) 2.5 mg EVERY 12 HOURS ORAL 08/09/17 09:00 08/30/17 20:59 08/09/17 20:25 Insulin Aspart (NovoLOG) BEFORE MEALS AND HS SUBQ 08/09/17 06:30 08/30/17 20:59 08/09/17 20:35 Lactulose (Cephulac) 20 gm Q6H PRN ORAL Constipation 08/09/17 03:34 09/08/17 03:33 Multivitamins (Multivitamins) 1 tab DAILY ORAL 08/09/17 09:00 09/06/17 16:29 08/09/17 09:51 Vancomycin HCl (Vanco rx to dose) 1 ea DAILYPRN PRN MISC Per rx protocol 08/09/17 15:00 08/31/17 14:59 Vancomycin/Sodium Chloride 250 ml @ 166.667 mls/hr Q12HR IVPB 08/09/17 09:00 08/19/17 08:59 08/09/17 20:25 Warfarin Sodium (Coumadin per pharmacy) 1 ea DAILY PRN MISC Per rx protocol 08/09/17 09:00 08/30/17 19:29 EDI VILLAGOMEZ DO Aug 09, 2017 21:03
[2017-08-10 04:00] VITALS: BP 144/66
[2017-08-10] MEDS: NovoLOG Insulin Flexpen SUBQ SCH ×2 (06:53→12:15)
[2017-08-10 07:03] LABS: HEMATOCRIT 32.6 % (37.0-47.0); HEMOGLOBIN 10.6 G/DL (12.0-16.0); MEAN CORPUSCULAR VOLUME 92 FL (80-99); PLATELET COUNT 197 K/UL (150-450); RED BLOOD COUNT 3.53 M/UL (4.20-5.40); RED CELL DISTRIBUTION WIDTH 13.1 % (11.6-14.8); WHITE BLOOD COUNT 4.4 K/UL (4.8-10.8)
[2017-08-10 07:25] LABS: ANION GAP 8 mmol/L (5-15); BLOOD UREA NITROGEN 16 mg/dL (7-18); CARBON DIOXIDE 28 MMOL/L (21-32); CHLORIDE 106 MMOL/L (98-107); CREATININE 0.9 MG/DL (0.55-1.30); POTASSIUM 4.2 MMOL/L (3.5-5.1); SODIUM 142 MMOL/L (136-145)
--- NOTE | 2017-08-10 07:25 | Pulmonology Progress Note ---
Assessment/Plan Assessment/Plan 1. Syncope. 2. Urinary tract infection. 3. Recent stroke with right hemiparesis, aphasia, and dysarthria. 4. Diabetes. 5. Hypertension. 6. Hyperlipidemia. doing well bs control po with assistance waiting for snf placement BC + s epi; no fevers or signs of sepsis disc w ID and will continue total 14 d vanco dc when bed available--still pending per CM Subjective Constitutional: Reports: no symptoms HEENT: Repors: no symptoms Cardiovascular: Reports: no symptoms Gastrointestinal/Abdominal: Reports: no symptoms Neurologic: Reports: no symptoms Allergies: Coded Allergies: PENICILLINS (Unverified Allergy, Unknown, 08/01/17) Subjective no new events no distress on o2 tolerating po with assistance, modified no cp or fever noted does not get out of bed feeling better Objective Last 24 Hour Vital Signs Date Time Temp Pulse Resp B/P (MAP) Pulse Ox O2 Delivery O2 Flow Rate FiO2 08/10/17 04:00 97.0 62 18 144/66 100 Room Air 08/09/17 23:57 97.8 86 16 157/73 98 Room Air 08/09/17 20:25 141/62 08/09/17 20:20 97.7 80 16 141/62 98 Room Air 08/09/17 17:24 98.2 82 16 151/61 99 Room Air 08/09/17 11:54 96.8 103 18 136/84 100 Nasal Cannula 2.0 18 08/09/17 09:51 141/73 08/09/17 08:11 95.9 62 18 141/73 98 General Appearance: WD/WN Respiratory/Chest: rhonchi Cardiovascular: normal rate, regular rhythm Abdomen: soft, non tender, no organomegaly Extremities: no cyanosis, no clubbing Neurologic/Psychiatric: oriented x 3, responsive Microbiology Date/Time Source Procedure Growth Status 08/08/17 08:30 Blood Blood Culture - Preliminary NO GROWTH AFTER 24 HOURS Resulted 08/08/17 08:30 Blood Blood Culture - Preliminary NO GROWTH AFTER 24 HOURS Resulted Laboratory Tests 08/09/17 10:50: Prothrombin Time 16.7H, Prothromb Time International Ratio 1.6H 08/10/17 05:40: Prothrombin Time [Pending], Prothromb Time International Ratio [Pending], White Blood Count 4.4L, Red Blood Count 3.53L, Hemoglobin 10.6L, Hematocrit 32.6L, Mean Corpuscular Volume 92, Mean Corpuscular Hemoglobin 29.9, Mean Corpuscular Hemoglobin Concent 32.4, Red Cell Distribution Width 13.1, Platelet Count 197, Mean Platelet Volume 7.8, Neutrophils (%) (Auto) , Lymphocytes (%) (Auto) , Monocytes (%) (Auto) , Eosinophils (%) (Auto) , Basophils (%) (Auto) , Sodium Level [Pending], Potassium Level [Pending], Chloride Level [Pending], Carbon Dioxide Level [Pending], Blood Urea Nitrogen [Pending], Creatinine [Pending], Estimat Glomerular Filtration Rate [Pending], Glucose Level [Pending], Calcium Level [Pending] Current Medications Medications (Trade) Dose Ordered Sig/Ricardo Route PRN Reason Start Time Stop Time Status Last Admin Dose Admin Acetaminophen (Tylenol) 650 mg Q4H PRN ORAL Fever/Headache/Mild Pain 08/09/17 03:30 08/30/17 19:29 Ascorbic Acid (Vitamin C) 500 mg DAILY ORAL 08/09/17 09:00 09/06/17 16:29 08/09/17 09:51 Aspirin (Ecotrin) 81 mg DAILY ORAL 08/09/17 09:00 08/31/17 08:59 08/09/17 09:51 Ceftriaxone Sodium 1 gm/ Dextrose 50 ml @ 100 mls/hr Q24H IVPB 08/09/17 12:00 08/13/17 11:59 08/09/17 12:04 Clonidine HCl (Catapres) 0.1 mg Q8H PRN ORAL For High Blood Pressure 08/09/17 03:33 09/08/17 03:32 Dextrose (Dextrose 50%) STAT PRN IV Hypoglycemia 08/09/17 03:34 08/30/17 03:33 Docusate Sodium (Colace) 100 mg TWICE A DAY NG 08/09/17 18:00 09/08/17 17:59 08/09/17 17:15 Enalapril Maleate (Vasotec) 2.5 mg EVERY 12 HOURS ORAL 08/09/17 09:00 08/30/17 20:59 08/09/17 20:25 Insulin Aspart (NovoLOG) BEFORE MEALS AND HS SUBQ 08/09/17 06:30 08/30/17 20:59 08/10/17 06:53 Lactulose (Cephulac) 20 gm Q6H PRN ORAL Constipation 08/09/17 03:34 09/08/17 03:33 Multivitamins (Multivitamins) 1 tab DAILY ORAL 08/09/17 09:00 09/06/17 16:29 08/09/17 09:51 Vancomycin HCl (Vanco rx to dose) 1 ea DAILYPRN PRN MISC Per rx protocol 08/09/17 15:00 08/31/17 14:59 Vancomycin/Sodium Chloride 250 ml @ 166.667 mls/hr Q12HR IVPB 08/09/17 09:00 08/19/17 08:59 08/09/17 20:25 Warfarin Sodium (Coumadin per pharmacy) 1 ea DAILY PRN MISC Per rx protocol 08/09/17 09:00 08/30/17 19:29 EDI VILLAGOMEZ DO Aug 10, 2017 07:25
[2017-08-10 07:49] LABS: INR 1.7 (0.9-1.1)
[2017-08-10 08:00] VITALS: BP 133/111
[2017-08-10] MEDS: Docusate 100mg/10ml Liq NG SCH (09:10)
[2017-08-10] MEDS: Aspirin EC 81mg tab ORAL SCH (09:10)
[2017-08-10] MEDS: Enalapril 2.5mg tab ORAL SCH (09:10)
[2017-08-10] MEDS: Ascorbic Acid 500mg tab ORAL SCH (09:10)
[2017-08-10] MEDS: Vancomycin 750mg/NS 250ml 250 ML IVPB SCH (09:11)
[2017-08-10] MEDS ORDERED: Tubing IV Secondary IV ONE (09:23)
[2017-08-10] MEDS ORDERED: NS 275ml ONE (09:23)
[2017-08-10 12:00] VITALS: BP 150/102
[2017-08-10] MEDS: cefTRIAXone 1 GM in D5W 50 ML IVPB SCH (12:16)
[2017-08-10] MEDS ORDERED: Warfarin Sodium 3mg ORAL ONE (17:00)
--- NOTE | 2017-08-11 09:19 | Discharge Summary ---
Discharge Summary Hospital Course Date of Admission Jul 31, 2017 at 16:12 Date of Discharge Aug 10, 2017 at 15:50 Admitting Diagnosis ALTERED MENTAL STATUS HPI Jennifer Medina is a 77 year old female who was admitted on Jul 31, 2017 at 16: 12 for Altered Mental Status Hospital Course dc summary -[id number] Discharge Medications New Medications: Ceftriaxone Na/Dextrose,Iso (Ceftriaxone 1 Gm Piggyback) 1 Gm/50 Ml Froz.piggy 1 GM IV Q24H for 6 Days, #6 BAG [[facility] pharmacy to dose] () 1 EA MISC 1 EA MISC DAILYPRN PRN for 14 Days Continued Medications: Acetaminophen* (Acetaminophen 325MG Tablet*) 325 Mg Tablet 650 MG ORAL Q4H PRN for Fever/Headache/Mild Pain, TAB Aspirin* (Aspir 81*) 81 Mg Tablet.dr 162 MG ORAL DAILY, TAB Clonidine Hcl* (Catapres*) 0.1 Mg Tablet 0.1 MG ORAL EVERY 8 HOURS PRN for SBP > 160, TAB Docusate Sodium* (Docusate Sodium*) 100 Mg Capsule 100 MG ORAL TWICE A DAY, CAP Enalapril Maleate* (Enalapril Maleate*) 2.5 Mg Tablet 2.5 MG ORAL EVERY 12 HOURS, TAB Insulin Regular, Human (Humulin R) 100 Unit/1 Ml Vial 600 MCG SUBQ, VIAL Lactulose (Lactulose*) 20 Gm/30 Ml Solution 30 ML ORAL EVERY 6 HOURS PRN for Constipation, ML 0 Refills Sennosides/Docusate Sodium (Senna S Tablet) 1 Each Tablet 2 EACH PO HS, TAB Warfarin Sod* (Coumadin*) 5 Mg Tablet 5 MG ORAL DAILY, TAB Discontinued Medications: Carvedilol* (Carvedilol*) 6.25 Mg Tablet 6.25 MG ORAL EVERY 12 HOURS, TAB Discharge Condition Upon Discharge: stable Discharge Disposition Patient was discharged to SNF/Subacute Facility(03) Discharge Diagnoses: Discharge Instructions Discharge Instructions Special Instructions I have been assigned to complete a D/C Summary on this account. I was not involved in the patient management Grace Castro NP (Vanchtein) Aug 11, 2017 09:19
--- NOTE | 2017-08-11 09:19 | Discharge Summary ---
Discharge Summary Hospital Course Date of Admission Jul 31, 2017 at 16:12 Date of Discharge Aug 10, 2017 at 15:50 Admitting Diagnosis ALTERED MENTAL STATUS HPI Jennifer Medina is a 77 year old female who was admitted on Jul 31, 2017 at 16: 12 for Altered Mental Status Hospital Course dc summary -[id number] Discharge Medications New Medications: Ceftriaxone Na/Dextrose,Iso (Ceftriaxone 1 Gm Piggyback) 1 Gm/50 Ml Froz.piggy 1 GM IV Q24H for 6 Days, #6 BAG [[facility] pharmacy to dose] () 1 EA MISC 1 EA MISC DAILYPRN PRN for 14 Days Continued Medications: Acetaminophen* (Acetaminophen 325MG Tablet*) 325 Mg Tablet 650 MG ORAL Q4H PRN for Fever/Headache/Mild Pain, TAB Aspirin* (Aspir 81*) 81 Mg Tablet.dr 162 MG ORAL DAILY, TAB Clonidine Hcl* (Catapres*) 0.1 Mg Tablet 0.1 MG ORAL EVERY 8 HOURS PRN for SBP > 160, TAB Docusate Sodium* (Docusate Sodium*) 100 Mg Capsule 100 MG ORAL TWICE A DAY, CAP Enalapril Maleate* (Enalapril Maleate*) 2.5 Mg Tablet 2.5 MG ORAL EVERY 12 HOURS, TAB Insulin Regular, Human (Humulin R) 100 Unit/1 Ml Vial 600 MCG SUBQ, VIAL Lactulose (Lactulose*) 20 Gm/30 Ml Solution 30 ML ORAL EVERY 6 HOURS PRN for Constipation, ML 0 Refills Sennosides/Docusate Sodium (Senna S Tablet) 1 Each Tablet 2 EACH PO HS, TAB Warfarin Sod* (Coumadin*) 5 Mg Tablet 5 MG ORAL DAILY, TAB Discontinued Medications: Carvedilol* (Carvedilol*) 6.25 Mg Tablet 6.25 MG ORAL EVERY 12 HOURS, TAB Discharge Condition Upon Discharge: stable Discharge Disposition Patient was discharged to SNF/Subacute Facility(03) Discharge Diagnoses: Discharge Instructions Discharge Instructions Special Instructions I have been assigned to complete a D/C Summary on this account. I was not involved in the patient management Grace Castro NP (Vanchtein) Aug 11, 2017 09:19
--- NOTE | 2017-08-11 09:19 | Discharge Summary ---
Discharge Summary Hospital Course Date of Admission Jul 31, 2017 at 16:12 Date of Discharge Aug 10, 2017 at 15:50 Admitting Diagnosis ALTERED MENTAL STATUS HPI Jennifer Medina is a 77 year old female who was admitted on Jul 31, 2017 at 16: 12 for Altered Mental Status Hospital Course dc summary -[id number] Discharge Medications New Medications: Ceftriaxone Na/Dextrose,Iso (Ceftriaxone 1 Gm Piggyback) 1 Gm/50 Ml Froz.piggy 1 GM IV Q24H for 6 Days, #6 BAG [[facility] pharmacy to dose] () 1 EA MISC 1 EA MISC DAILYPRN PRN for 14 Days Continued Medications: Acetaminophen* (Acetaminophen 325MG Tablet*) 325 Mg Tablet 650 MG ORAL Q4H PRN for Fever/Headache/Mild Pain, TAB Aspirin* (Aspir 81*) 81 Mg Tablet.dr 162 MG ORAL DAILY, TAB Clonidine Hcl* (Catapres*) 0.1 Mg Tablet 0.1 MG ORAL EVERY 8 HOURS PRN for SBP > 160, TAB Docusate Sodium* (Docusate Sodium*) 100 Mg Capsule 100 MG ORAL TWICE A DAY, CAP Enalapril Maleate* (Enalapril Maleate*) 2.5 Mg Tablet 2.5 MG ORAL EVERY 12 HOURS, TAB Insulin Regular, Human (Humulin R) 100 Unit/1 Ml Vial 600 MCG SUBQ, VIAL Lactulose (Lactulose*) 20 Gm/30 Ml Solution 30 ML ORAL EVERY 6 HOURS PRN for Constipation, ML 0 Refills Sennosides/Docusate Sodium (Senna S Tablet) 1 Each Tablet 2 EACH PO HS, TAB Warfarin Sod* (Coumadin*) 5 Mg Tablet 5 MG ORAL DAILY, TAB Discontinued Medications: Carvedilol* (Carvedilol*) 6.25 Mg Tablet 6.25 MG ORAL EVERY 12 HOURS, TAB Discharge Condition Upon Discharge: stable Discharge Disposition Patient was discharged to SNF/Subacute Facility(03) Discharge Diagnoses: Discharge Instructions Discharge Instructions Special Instructions I have been assigned to complete a D/C Summary on this account. I was not involved in the patient management Grace Castro NP (Vanchtein) Aug 11, 2017 09:19
--- NOTE | 2017-08-11 23:30 | Discharge Summary 2 SIG ---
DATE OF ADMISSION: 07/31/2017 DATE OF DISCHARGE: 08/10/2017 REASON FOR ADMISSION: 77-year-old female with a history of atrial fibrillation, hypertension, diabetes, recent stroke with right hemiparesis, aphasia, dysarthria, [place], and hyperlipidemia, [facility] when she passed out. The patient recently had a CVA and after stabilization at [facility], was discharged to senior living facility for rehabilitation. After passing out, the patient was sent to emergency room for evaluation. The patient was found to have a urinary tract infection and altered level of consciousness. Urinalysis with evidence of UTI. No leukocytosis. CT of the head revealed considerable low attenuation within the left parietal hemisphere mostly in the white matter, suspecting encephalomalacia due to infarct, reflecting recently occurred CVA . CT head was negative for acute intracranial bleeding or mass effect. The patient was admitted to telemetry floor for further management of altered level of consciousness and urinary tract infection. HOSPITAL STAY: The patient was admitted to telemetry floor. The patient was started on antibiotics. Urine culture grew E coli. Blood culture revealed Staphylococcus epidermidis. ID consult was requested. ID closely followed the patient. HI revealed no evidence of vegetation. Repeated blood culture on 08/03/2017 and 08/04/2017 revealed 1/4 Staph coagulase-negative, likely contaminant. Final repeated blood culture on 08/08/2017 were negative. The patient was on antibiotic as per ID, continue at the senior living facility to complete the course of antibiotics. Echocardiogram revealed preserved ejection fraction of 55% to 60% and again no evidence of vegetation. Blood pressure was controlled with MAKAYLA inhibitor and beta-duarte, however due to the bradycardia, beta-duarte was stopped and clonidine added on as needed basis. Blood pressure was controlled. The patient had paroxysmal atrial fibrillation, was on anticoagulation with Coumadin to keep INR in therapeutic range. Chest x-ray was negative. Supplemental oxygen and pulmonary toilet provided as needed. Pulse oximetry stable on room air. Blood sugar was managed with sliding scale of insulin. Hemoglobin A1c- 5.6 at goal. TSH was within normal limits. Lipid panel revealed elevated LDL- 113. Started on statin. The patient was also educated on diabetic low-fat cardiac diet. Upon admission, noted mid sacral stage III pressure sores along with the right buttock stage II decubitus ulcer, was present on admission. Wound care nurse seen and evaluated the patient. Wound care provided as per wound care nurse recommendation. Right buttock stage II decubitus ulcer present on admission, resolved. Continue wound care for mid sacral stage III decubitus ulcer at the senior living facility. The patient was stable for discharge on IV antibiotics. The patient was discharged to [facility] at [place] in stable condition. FINAL DIAGNOSES: 1. Altered level of consciousness likely secondary to infection. 2. Sepsis with high-grade bacteremia Staphylococcus epidermidis. 3. Urinary tract infection with Klebsiella. 4. Recent cerebrovascular accident with right hemiparesis, aphasia, and dysarthria. 5. Diabetes. 6. Hypertension. 7. Hyperlipidemia. 8. Mid sacral stage III decubitus, present on admission. 9. Right buttock stage II, present on admission, resolved. DISCHARGE MEDICATIONS: See medication reconciliation list. DISCHARGE INSTRUCTIONS: The patient was discharged to senior living facility DISCHARGE INSTRUCTIONS: The patient to follow up with medical doctor at the facility. Gurvinder Benson M.D. I have been assigned to dictate discharge summary on this account and I was not involved in the patient's management. Grace Castro (Vanchtein) N.P. DR: Kobe JOB#: [id number] CC: RE
--- NOTE | 2017-08-11 23:30 | Discharge Summary 2 SIG ---
DATE OF ADMISSION: 07/31/2017 DATE OF DISCHARGE: 08/10/2017 REASON FOR ADMISSION: 77-year-old female with a history of atrial fibrillation, hypertension, diabetes, recent stroke with right hemiparesis, aphasia, dysarthria, [place], and hyperlipidemia, was at [facility] getting physical therapy when she passed out. The patient recently had a CVA and after stabilization at [facility], was discharged to care home facility for rehabilitation. After passing out, the patient was sent to emergency room for evaluation. The patient was found to have a urinary tract infection and altered level of consciousness. Urinalysis with evidence of UTI. No leukocytosis. CT of the head revealed considerable low attenuation within the left parietal hemisphere mostly in the white matter, suspecting encephalomalacia due to infarct, reflecting recently occurred CVA . CT head was negative for acute intracranial bleeding or mass effect. The patient was admitted to telemetry floor for further management of altered level of consciousness and urinary tract infection. HOSPITAL STAY: The patient was admitted to telemetry floor. The patient was started on antibiotics. Urine culture grew E coli. Blood culture revealed Staphylococcus epidermidis. ID consult was requested. ID closely followed the patient. HI revealed no evidence of vegetation. Repeated blood culture on 08/03/2017 and 08/04/2017 revealed 1/4 Staph coagulase-negative, likely contaminant. Final repeated blood culture on 08/08/2017 were negative. The patient was on antibiotic as per ID, continue at the care home facility to complete the course of antibiotics. Echocardiogram revealed preserved ejection fraction of 55% to 60% and again no evidence of vegetation. Blood pressure was controlled with MAKAYLA inhibitor and beta-duaret, however due to the bradycardia, beta-duarte was stopped and clonidine added on as needed basis. Blood pressure was controlled. The patient had paroxysmal atrial fibrillation, was on anticoagulation with Coumadin to keep INR in therapeutic range. Chest x-ray was negative. Supplemental oxygen and pulmonary toilet provided as needed. Pulse oximetry stable on room air. Blood sugar was managed with sliding scale of insulin. Hemoglobin A1c- 5.6 at goal. TSH was within normal limits. Lipid panel revealed elevated LDL- 113. Started on statin. The patient was also educated on diabetic low-fat cardiac diet. Upon admission, noted mid sacral stage III pressure sores along with the right buttock stage II decubitus ulcer, was present on admission. Wound care nurse seen and evaluated the patient. Wound care provided as per wound care nurse recommendation. Right buttock stage II decubitus ulcer present on admission, resolved. Continue wound care for mid sacral stage III decubitus ulcer at the care home facility. The patient was stable for discharge on IV antibiotics. The patient was discharged to [facility] [place] in stable condition. FINAL DIAGNOSES: 1. Altered level of consciousness likely secondary to infection. 2. Sepsis with high-grade bacteremia Staphylococcus epidermidis. 3. Urinary tract infection with Klebsiella. 4. Recent cerebrovascular accident with right hemiparesis, aphasia, and dysarthria. 5. Diabetes. 6. Hypertension. 7. Hyperlipidemia. 8. Mid sacral stage III decubitus, present on admission. 9. Right buttock stage II, present on admission, resolved. DISCHARGE MEDICATIONS: See medication reconciliation list. DISCHARGE INSTRUCTIONS: The patient was discharged to care home facility DISCHARGE INSTRUCTIONS: The patient to follow up with medical doctor at the facility. Gurvinder Benson M.D. I have been assigned to dictate discharge summary on this account and I was not involved in the patient's management. Grace Castro (Vanchtein) N.P. DR: Kobe JOB#: [id number] CC: RE
--- NOTE | 2017-08-11 23:30 | Discharge Summary 2 SIG ---
DATE OF ADMISSION: 07/31/2017 DATE OF DISCHARGE: 08/10/2017 REASON FOR ADMISSION: 77-year-old female with a history of atrial fibrillation, hypertension, diabetes, recent stroke with right hemiparesis, aphasia, dysarthria, [place], and hyperlipidemia, was [facility] getting [facility] when she passed out. The patient recently had a CVA and after stabilization at [facility], was discharged to [facility] for rehabilitation. After passing out, the patient was sent to emergency room for evaluation. The patient was found to have a urinary tract infection and altered level of consciousness. Urinalysis with evidence of UTI. No leukocytosis. CT of the head revealed considerable low attenuation within the left parietal hemisphere mostly in the white matter, suspecting encephalomalacia due to infarct, reflecting recently occurred CVA . CT head was negative for acute intracranial bleeding or mass effect. The patient was admitted to telemetry floor for further management of altered level of consciousness and urinary tract infection. HOSPITAL STAY: The patient was admitted to telemetry floor. The patient was started on antibiotics. Urine culture grew E coli. Blood culture revealed Staphylococcus epidermidis. ID consult was requested. ID closely followed the patient. HI revealed no evidence of vegetation. Repeated blood culture on 08/03/2017 and 08/04/2017 revealed 1/4 Staph coagulase-negative, likely contaminant. Final repeated blood culture on 08/08/2017 were negative. The patient was on antibiotic as per ID, continue at the [facility] facility to complete the course of antibiotics. Echocardiogram revealed preserved ejection fraction of 55% to 60% and again no evidence of vegetation. Blood pressure was controlled with MAKAYLA inhibitor and beta-duarte, however due to the bradycardia, beta-duarte was stopped and clonidine added on as needed basis. Blood pressure was controlled. The patient had paroxysmal atrial fibrillation, was on anticoagulation with Coumadin to keep INR in therapeutic range. Chest x-ray was negative. Supplemental oxygen and pulmonary toilet provided as needed. Pulse oximetry stable on room air. Blood sugar was managed with sliding scale of insulin. Hemoglobin A1c- 5.6 at goal. TSH was within normal limits. Lipid panel revealed elevated LDL- 113. Started on statin. The patient was also educated on diabetic low-fat cardiac diet. Upon admission, noted mid sacral stage III pressure sores along with the right buttock stage II decubitus ulcer, was present on admission. Wound care nurse seen and evaluated the patient. Wound care provided as per wound care nurse recommendation. Right buttock stage II decubitus ulcer present on admission, resolved. Continue wound care for mid sacral stage III decubitus ulcer at the [facility] facility. The patient was stable for discharge on IV antibiotics. The patient was discharged to [facility] at [place] in stable condition. FINAL DIAGNOSES: 1. Altered level of consciousness likely secondary to infection. 2. Sepsis with high-grade bacteremia Staphylococcus epidermidis. 3. Urinary tract infection with Klebsiella. 4. Recent cerebrovascular accident with right hemiparesis, aphasia, and dysarthria. 5. Diabetes. 6. Hypertension. 7. Hyperlipidemia. 8. Mid sacral stage III decubitus, present on admission. 9. Right buttock stage II, present on admission, resolved. DISCHARGE MEDICATIONS: See medication reconciliation list. DISCHARGE INSTRUCTIONS: The patient was discharged to [facility] facility DISCHARGE INSTRUCTIONS: The patient to follow up with medical doctor at the facility. Gurvinder Benson M.D. I have been assigned to dictate discharge summary on this account and I was not involved in the patient's management. Grace Castro (Vanchtein) N.P. DR: Kobe JOB#: [id number] CC: ER
== END 2017-08-10 15:50 | DRG 871 ==
LOC: EDBD 12:44 → EMR 14:00 → 2E 16:12 → EDBEDREQ 16:29 → 2E 18:02 → 4E 08-09 03:12
DX: A41.1 Sepsis due to other specified staphylococcus (principal); L89.153 Pressure ulcer of sacral region, stage 3; L89.312 Pressure ulcer of right buttock, stage 2; I69.351 Hemiplegia and hemiparesis following cerebral infarction affecting right dominant side; I48.0 Paroxysmal atrial fibrillation; N39.0 Urinary tract infection, site not specified; E11.9 Type 2 diabetes mellitus without complications; I10 Essential (primary) hypertension; R55 Syncope and collapse; E78.5 Hyperlipidemia, unspecified; I69.320 Aphasia following cerebral infarction; I69.322 Dysarthria following cerebral infarction; B96.1 Klebsiella pneumoniae [K. pneumoniae] as the cause of diseases classified elsewhere; I25.2 Old myocardial infarction; Z88.0 Allergy status to penicillin; I25.10 Atherosclerotic heart disease of native coronary artery without angina pectoris
CPT/HCPCS: 36415; 70450; 71010; 80048; 80053; 80061; 80202; 81003; 82550; 82553; 82962; 83036; 83605; 84443; 84484; 85007; 85025; 85610; 85730; 87040; 87081; 87086; 87181; 93005; 93306; 99285; J1580; J1815; S0077